=== PATIENT | male | born 1965 | race Hispanic/Latino ===

== ENCOUNTER 2017-09-10 10:45 | Inpatient (IN) | payer BC, SELFPAY ==
[2017-09-10 11:55] LABS: Hemoglobin 13.4 g/dL (14.0-18.0); Mean Corpuscular HGB CONC 33.5 g/dL (32.0-36.0); Mean Corpuscular Hemoglobin 29.8 pg (27.0-31.0); Mean Corpuscular Volume 89.1 fl (80.0-94.0); Platelet Count 287 thou/uL (130-400); White Blood Cell (WBC) Count 16.4 thou/uL (4.8-10.8)
[2017-09-10 12:12] LABS: Band 21 % (5-11); Lymphocytes 3 % (21-51); MDiff Complete? YES; Metamyelocyte 3 % (0-0); Monocytes 8 % (0-10); Neutrophil 65 % (42-75); PLT Morphology Comment Appears Adequate; RBC Morphology Normal
[2017-09-10 12:16] LABS: ALT (SGPT) 20 U/L (8-55); AST (SGOT) 22 U/L (5-34); Albumin 2.8 g/dL (3.5-5.0); Alkaline Phosphatase 155 U/L (40-150); Anion Gap 17 mmol/L (10-20); BUN (Urea Nitrogen) 18 mg/dL (8.4-25.7); Bilirubin, Total 0.6 mg/dL (0.2-1.2); Calc. Creatinine Clearance 0 mL/min (70-130); Calcium 9.4 mg/dL (7.8-10.44); Carbon Dioxide 23 mmol/L (22-29); Chloride 97 mmol/L (98-107); Estimated GFR-MDRD Greater than 90; Globulin 4.2 g/dL (2.4-3.5); Glucose 510 mg/dL (70-105); Potassium 4.3 mmol/L (3.5-5.1); Sodium 133 mmol/L (136-145)
[2017-09-10] MEDS ORDERED: Adacel (T-DAP) 0.5 ML VIAL ONE (12:30)
[2017-09-10] MEDS ORDERED: Clindamycin/D5W 900 mg/50 ml Premix Bag ONE (12:31)
[2017-09-10] MEDS ORDERED: Piperacillin/Tazobactam 4.5 GM in Sodium Chloride 0.9% 100 ML IVPB SCH (12:45)
[2017-09-10] MEDS ORDERED: Insulin Regular 300 UNITS/3 ML VIAL ONE (13:26)
[2017-09-10 13:44] LABS: Bilirubin Negative (Negative); Blood, Urine Negative (Negative); Clarity CLEAR (Clear); Glucose, Urine (Dipstick) >=1000 mg/dL (Negative); Leukocyte Negative (Negative); Nitrite Negative (Negative); Protein, Urine (Dipstick) Negative (Neg-Trace); Specific Gravity, Urine 1.044 (1.002-1.036)
[2017-09-10 13:53] LABS: Amphetamine Not Detected (NotDetected); Barbiturates Screen Not Detected (NotDetected); Benzodiazepine Screen Not Detected (NotDetected); Cocaine Metabolite Screen Not Detected (NotDetected); Medtox Control Line Valid? VALID (VALID); Medtox Reader # READER 4; Methadone Not Detected (NotDetected); Methamphetamine Not Detected (NotDetected); Opiate Screen Detected (NotDetected); Oxycodone Screen Not Detected (NotDetected); Phencyclidine (PCP) Not Detected (NotDetected); THC/Cannabinoid Screen Not Detected (NotDetected); Tricyclic Screen Not Detected (NotDetected)
[2017-09-10] MEDS ORDERED: Ondansetron ODT 4 MG TAB SL PRN (14:39)
[2017-09-10] MEDS ORDERED: Ondansetron HCl/PF 4 MG/2 ML Vial IVP PRN ×2 (14:39→14:48)
[2017-09-10] MEDS ORDERED: Dextrose 50% Abboject 50 ML SYRINGE SLOW IVP PRN (14:48)
[2017-09-10] MEDS ORDERED: HYDROcodone/Acetaminophen 7.5/325 mg Tablet PO PRN (14:48)
[2017-09-10] MEDS ORDERED: Dextrose 5% in Water 1,000 ML IV PRN (14:48)
[2017-09-10] MEDS: Sodium Chloride 0.9% 1,000 ML IV SCH ×2 (15:00→17:32)
[2017-09-10 15:14] VITALS: BMI 31.7
[2017-09-10] MEDS: Piperacillin/Tazobactam 3.375 GM in Sodium Chloride 0.9% 100 ML IVPB SCH ×2 (17:36→23:41)
[2017-09-10] MEDS: HumaLOG 300 UNITS/3 ML VIAL SC PRN (17:38)
[2017-09-10] MEDS: Famotidine/PF 20 mg/2ml Vial SLOW IVP SCH (20:53)
[2017-09-10] MEDS: Insulin Detemir 100 UNITS/ML 10 UNITS in Admixture Fee 1 EACH SC SCH (20:53)
--- NOTE | 2017-09-10 20:54 | HP ---
DATE OF ADMISSION: 09/10/2017 CHIEF COMPLAINT: Back pain. HISTORY OF PRESENT ILLNESS: The patient is a 52-year-old male who is admitted to the [facility] with a 9-day history of back pain. Apparently, approximately 9 days ago, the wind caused that do or was open and hit his back. He had no problems for 3 days approximately and he started having some low grade temperature. No chills. Because he does not have the funds, he was not able to go to the doctor. He was taking his friend's pain medications from [place] and this was gradually getting wors e to the point that he decided to come to the emergency room to look for medical attention. He did n ot have any chest pain. There was no any fever per se. He felt feverish just in the beginning, but nothing today. He had this pain up to approximately 7 or 8 on a scale from 1-10 in the mid center of the back. There was no nausea, vomiting or abdominal pain. At the time of emergency room evaluatio n, he was tachycardic. His white count was elevated and because of above-mentioned problems and his uncontrolled diabetes with sugar more than 500, decision was made to admit him to the hospital for fu rther treatment with IV antibiotics and surgical consultation. PAST MEDICAL HISTORY: Positive for: 1. Diverticulitis. 2. Diabetes mellitus type 2. PAST SURGICAL HISTORY: 1. Surgery for diverticulitis. 2. Appendectomy. 3. Perirenal abscess drainage. ALLERGIES: SULFA. MEDICATIONS: Unknown medications for the pain and metformin 500 mg once a day. FAMILY HISTORY: His father of lung cancer 3 years ago at the age of 73 and his mother has some dementia and she has diabetes mellitus type 2. SOCIAL HISTORY: He never smoked. He never had cigarettes. He does not use any of the other medicat ions than metformin. It is not clear whether he is using any illicit drugs, although he was offered some marijuana today for the pain, but he did not use it according to him, he works with tax returns. REVIEW OF SYSTEMS: Constitutional: Positive for some low grade fever in the beginning, no chills. Eyes: Negative for eye pain or any eye discharge. ENT: Negative for nasal congestion and rhinorrhe a. Respiratory: Negative for cough and shortness of breath. Cardiovascular: Negative for chest pain and palpitations. Gastrointestinal: Negative for nausea, v omiting, abdominal pain. Genitourinary: Negative for dysuria and hematuria. Skin: Negative for jaundice or rash or itching. Musculoskeletal: Negative for arthritis and stiffn ess. Positive for some swelling in the back and pain. Neurologic: Negative for dizziness and heada ches. Psychiatric: Negative for anxiety or depression. PHYSICAL EXAMINATION: VITAL SIGNS: His blood pressure is 132/81, pulse is 110, respiratory rate is 23, pulse oximetry is 9 4% on room air. GENERAL: He is resting in bed quite comfortably. He is not in any distress during my visit. HEENT: His head is atraumatic, normocephalic. Eyes are PERRLA. Sclerae nonicteric. Conjunctivae p inkish. Oral mucosa is somewhat dry. NECK: Supple, no lymphadenopathy. Thyroid is not palpable. LUNGS: Clear. HEART: S1, S2, tachycardic. No S3, no S4, no any murmur. ABDOMEN: Soft, nontender, obese, bowel sounds are present, no organomegaly. EXTREMITIES: No clubbing, cyanosis or edema. SKIN: He has multiple discolorations all over his body from previous rash. He had of unclear etiolo gy. NEUROLOGIC: He is alert and oriented x4. There was not any sensorimotor deficits are present. Cran ial nerves are intact. LABORATORY DATA: Showed white count of 16.4, hematocrit 13.4, hematocrit 40.1, platelet count 287, 2 1% bands, 3 lymphocytes, and 3 metamyelocytes. Chemistry showed sodium of 133, potassium 4.3, chlori de is 97, CO2 is 23, BUN 18, creatinine 0.83, glucose 510. Lactic acid 1.5, alkaline phosphatase 155 , albumin 2.8, globulin 4.2, ssiioch-mm-usftueca ratio 0.7. IMPRESSION: 1. Sepsis secondary to most likely abscess which is located in the mid portion of his back. 2. Abscess of the back. 3. Uncontrolled diabetes mellitus. PLAN: Admission to the medical floor. Condition is fair. Diet: A 2000 calorie ADA diet. Vancomyc in 1 gram q.12 hours IV piggyback, Zosyn 3.375 grams q.6 hours IV piggyback, one dose of each patient received in the emergency room IV fluids at 100 mL per hour of normal saline. General Surgery consu ltation with Dr. Danielle for evaluation of an abscess, possible incision and drainage. Insulin will be used in form of long-acting Levemir 10 units at bedtime and sliding scale mild with Humalog a.c. and at bedtime, Cash 7.5 mg tablets will be used every 6-8 hours p.r.n. as needed for the pain. Blood cultures, urine cultures and drug screen was done, results are pending. Metformin will be put on hol d that is his home medications. He is FULL CODE. His power of correspondence transcriber is his sister, all three agr eed and we will also keep him on DVT prophylaxis with 40 mg of subcutaneous Lovenox and 20 mg of IV p ush, Pepcid for PUD prophylaxis.
[2017-09-10] MEDS ORDERED: Acetaminophen 500 MG TAB PO PRN (23:54)
--- NOTE | 2017-09-11 00:54 | CON ---
DATE OF CONSULTATION: 09/10/2017 GENERAL SURGERY CONSULTATION CHIEF COMPLAINT: Painful mass, left back. HISTORY OF PRESENT ILLNESS: This is a 52-year-old diabetic male, who was hit by a car door about 9 d ays ago. He developed swelling and back pain that has increased over the last few days and he report s draining purulent fluid for the last 2 days as well as elevated glucose. PAST MEDICAL HISTORY: Significant for diabetes mellitus. PAST SURGICAL HISTORY: Had an appendectomy. He has had diverticulitis. He has had a hydrocelectomy . MEDICATIONS: He was no medications. ALLERGIES: He is allergic to SULFA. SOCIAL HISTORY: He is . No tobacco. Rare alcohol. PHYSICAL EXAMINATION: VITAL SIGNS: Temperature 98.5, pulse 109, blood pressure 97/59, well-developed, well-nourished male, awake. HEENT: Unremarkable. LUNGS: Clear. HEART: Regular rate and rhythm. ABDOMEN: Soft, nontender. BACK: There is a 15 cm left upper mid back swollen area with overlying erythema and extreme tenderne ss. LABORATORY AND X-RAY FINDINGS: His white count 16.4, H and H 13 and 40, platelet count 287. Electro lytes show an elevated glucose of 510. ASSESSMENT: Back abscess. PLAN: I and D, but he just ate so will make him n.p.o. and do it tomorrow.
[2017-09-11] MEDS: Vancomycin HCl 1 GM in Premix Bag 1 BAG IVPB SCH ×2 (01:40→14:24)
[2017-09-11] MEDS: Piperacillin/Tazobactam 3.375 GM in Sodium Chloride 0.9% 100 ML IVPB SCH ×4 (05:47→23:37)
[2017-09-11 06:09] LABS: Band 20 % (5-11); Hemoglobin 13.3 g/dL (14.0-18.0); Lymphocytes 13 % (21-51); MDiff Complete? YES; Mean Corpuscular HGB CONC 32.1 g/dL (32.0-36.0); Mean Corpuscular Hemoglobin 28.8 pg (27.0-31.0); Mean Corpuscular Volume 89.8 fl (80.0-94.0); Mean Platelet Volume 7.7 fL (7.4-10.4); Monocytes 5 % (0-10); Neutrophil 62 % (42-75); PLT Morphology Comment Appears Adequate; Platelet Count 310 thou/uL (130-400); RBC Distribution Width 11.9 % (11.5-14.5); Red Blood Cell (RBC) Count 4.63 mill/uL (4.70-6.10); White Blood Cell (WBC) Count 20.7 thou/uL (4.8-10.8)
[2017-09-11] MEDS ORDERED: Fentanyl 100 MCG/2 ML VIAL ONE (08:43)
[2017-09-11] MEDS ORDERED: HYDROmorphone 0.5 MG/0.5 ML SYRINGE ONE (08:43)
[2017-09-11] MEDS ORDERED: Morphine 5 MG/ML SYRINGE SLOW IVP PRN (09:53)
[2017-09-11] MEDS ORDERED: Morphine 2 MG/ML SYRINGE SLOW IVP PRN (09:53)
--- NOTE | 2017-09-11 10:03 | OP ---
PREOPERATIVE DIAGNOSIS: Abscess of back. SURGEON: Yovany Danielle M.D. PROCEDURE: Incision and drainage and debridement. INDICATIONS: This is a 52-year-old male who presented with a several week history of painful mass on his back. FINDINGS: Necrotic fascia containing multiple microabscesses that was probably about 15 x 20 cm in d iameter. The fascia was liquified with non-foul smelling purulent fluid. PROCEDURE IN DETAIL: After informed consent was obtained, the patient was taken to the operating [facility]leen [facility] and given general endotracheal anesthesia. He was placed in the right lateral decubitus position. His back was prepped and draped in the usual fashion. An elliptical incision was performed. Purule nt fluid expressed and sent for culture, turned out was fascia and it was like entire fascia had been liquified with necrosis contained multiple microabscesses of brownish thick purulent fluid. The fas savannah had to be opened up sharply with curved Rosas scissors circumferentially for a distance of approxi mately 15 x 20 cm. Necrotic fascia was excised sharply. Hemostasis achieved with electrocautery. T he wound was thoroughly irrigated with pulse health researcher and 3 liters of saline. Hemostasis assured an d then the wound care team came in to place a wound VAC. The patient tolerated the procedure well.
[2017-09-11] MEDS: Enoxaparin Sodium 40 MG/0.4 ML SYRINGE SC SCH (10:11)
[2017-09-11] MEDS: Famotidine/PF 20 mg/2ml Vial SLOW IVP SCH ×2 (11:38→20:41)
[2017-09-11] MEDS: HumaLOG 300 UNITS/3 ML VIAL SC PRN (11:41)
[2017-09-11] MEDS: Sodium Chloride 0.9% 1,000 ML IV SCH ×2 (11:43→17:26)
[2017-09-11] MEDS ORDERED: Lidocaine 1% PF 5 ML VIAL ONE (12:03)
[2017-09-11] MEDS ORDERED: PROPOFOL 200 MG/20 ML VIAL ONE (12:03)
[2017-09-11] MEDS ORDERED: Glycopyrrolate 0.2 MG/ML 5 ML SYRINGE ONE (12:03)
[2017-09-11] MEDS ORDERED: Ondansetron HCl/PF 4 MG/2 ML Vial ONE (12:03)
[2017-09-11] MEDS ORDERED: Succinylcholine Chloride 20 MG/ML 10 ml SYRINGE FS ONE (12:03)
[2017-09-11 12:23] LABS: HIV (1/2) Antibody/Antigen Non-Reactive (NonReactive); HIV 1/2 INDEX 0.27 S/CO (<1.00)
--- NOTE | 2017-09-11 13:14 | CON ---
DATE OF CONSULTATION: 09/11/2017 REASON FOR CONSULTATION: Abscess carbuncle and necrotizing infection, back area. HISTORY OF PRESENT ILLNESS: A 52-year-old who has a history of type 2 diabetes mellitus and prior episode of diverticulitis who sustained an injury to his back accidentally hit by a car door with development of inflammatory process. He decided to take some pain medications that he had at home and the process became worse to the point that he had to be admitted to the emergency room. Dr. Danielle did I and D with extensive area of fasciitis and abscess formation in the back. Patient has a negative pressure dressing at this site. Other than that, he has a history of some skin disorder a few years ago and he has some scars from that. It does not appear to be active anymore. No headaches, visual symptoms, sore throat, odynophagia, dysphagia, no cough or sputum production or chest pain, no abdominal pain, no genitourinary symptoms, no joint symptoms. PAST MEDICAL HISTORY: Diverticulitis, type 2 diabetes and some skin disorder a few years ago which was not diagnosed. PAST SURGICAL HISTORY: Diverticulitis operation, appendectomy, perianal abscess drainage and drainage of an abscess in the neck area in the recent past. ALLERGIES: SULFA DRUGS WITH RASH. CURRENT MEDICATIONS: Include Tylenol, [place], dextrose, Lovenox, Pepcid, glucagon, morphine, Zosyn, and vancomycin. 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 PHYSICAL EXAMINATION: VITAL SIGNS: T-max 102.4, currently 98.3, blood pressure 119/65, pulse 100-109 , respirations 16, O2 sat 94% on room air and appears in no distress. SKIN: Shows the negative pressure dressing in the back area and mid back region. He has healed scars hyperpigmentation from skin and eruption a few years ago. No lymphadenopathy. HEENT: Ocular movements are conjugate. Oral cavity moist, with no lesions. NECK: Supple, no jugular venous distention. LUNGS: With symmetric clear breath sounds. HEART: S1, S2, regular rate. No S3 or S4. ABDOMEN: Soft, not distended or tender. No ascites. No bladder distention. EXTREMITIES: No joint inflammatory activity. NEUROLOGIC: Nonfocal. LABORATORY DATA: White cell count 16.4 and 20.7, hemoglobin 13 and 13, platelets 310 with 20% bands. Chemistry: Sodium 138, carbon dioxide 23, glucose 388, alkaline phosphatase 155 with normal transaminases and albumin 2.8. Urinalysis greater than 1000 glucose, protein negative. HIV serology nonreactive, opiates detected, but no other drugs. Microbiology with gram positive cocci in clusters identified from the drainage site. Two sets of blood cultures pending thus far. IMAGING STUDIES: None. ASSESSMENT: Type 2 diabetes carbuncle with fasciitis in the back area, status post surgical debridement. DISCUSSION: We will monitor blood cultures. If negative, then we will continue IV antimicrobial therapy, eventually transition to either vancomycin or cefazolin or Rocephin alone. I plan hopefully to transition him to oral antimicrobial therapy once adequate improvement in the inflammatory control is achieved, in preparation for discharge planning as long as blood cultures remain negative. ROYA
[2017-09-11] MEDS: HYDROcodone/Acetaminophen 10/325 mg Tablet PO PRN ×2 (14:26→23:36)
--- NOTE | 2017-09-11 16:18 | PDOC.PN ---
- Subjective Encounter Start Date: 09/11/17 Encounter Start Time: 16:16 Subjective: feels OK.s/p back I&D - Objective Resuscitation Status: Resuscitation Status FULL:Full Resuscitation MAR Reviewed: Yes Vital Signs & Weight: Vital Signs (12 hours) Temp Pulse Resp BP Pulse Ox 09/11/17 11:25 98.3 F 109 H 16 119/65 94 L 09/11/17 08:00 98.7 F 100 18 94 L Weight Admit Weight 227 lb 6.4 oz Weight 227 lb 6.4 oz I&O: 09/10/17 09/11/17 09/12/17 06:59 06:59 06:59 Intake Total 5220 Output Total 900 Balance 4320 Result Diagrams: 09/11/17 05:29 09/10/17 11:39 Additional Labs: Accuchecks 09/11/17 09/11/17 09/11/17 11:33 10:20 08:29 POC Glucose 280 H 274 H 307 H 09/11/17 09/10/17 09/10/17 05:41 21:00 17:02 POC Glucose 353 H 333 H 295 H Microbiology 09/10/17 13:12 Urine voided Urine Culture - Preliminary NO GROWTH AT 24 HOURS 09/10/17 11:39 Venous blood - Right Hand Blood Culture - Preliminary Specimen has been received and culture in progress. No Growth to date. 09/10/17 11:39 Venous blood - Left Hand Blood Culture - Preliminary Specimen has been received and culture in progress. No Growth to date. Laboratory Tests 09/11/17 11:38 HIV 1&2 Antigen & Ab Non-Reactive Phys Exam - Physical Examination Constitutional: NAD HEENT: PERRLA, moist MMs, sclera anicteric, oral pharynx no lesions Neck: no nodes, no JVD, supple, full ROM Respiratory: no wheezing, no rales, no rhonchi, clear to auscultation bilateral Cardiovascular: RRR, no significant murmur, no rub, gallop, irregular Gastrointestinal: soft, non-tender, no distention, positive bowel sounds Musculoskeletal: no edema, pulses present Neurological: non-focal, normal sensation, moves all 4 limbs Psychiatric: normal affect, A&O x 3 Skin: no rash Dx/Plan (1) Abscess of back Code(s): L02.212 - CUTANEOUS ABSCESS OF BACK [ANY PART, EXCEPT BUTTOCK] Status : Acute (2) Uncontrolled diabetes mellitus Code(s): E11.65 - TYPE 2 DIABETES MELLITUS WITH HYPERGLYCEMIA Status: Chronic Qualifiers: Diabetes mellitus type: type 2 Diabetes mellitus complication status: with hyperglycemia - Plan continue antibiotics, DVT proph w/SCDs cont Antibiotics per ID.s/p I&D. -: increase ISS.cont levemir * . Review of Systems - Review of Systems Constitutional: negative: fever, chills, sweats, weakness, malaise, other Respiratory: negative: Cough, Dry, Shortness of Breath, Hemoptysis, SOB with Excertion, Pleuritic Pain, Sputum, Wheezing Cardiovascular: negative: chest pain, palpitations, orthopnea, paroxysmal nocturnal dyspnea, edema, light headedness, other Gastrointestinal: negative: Nausea, Vomiting, Abdominal Pain, Diarrhea, Constipation, Melena, Hematochezia, Other Genitourinary: negative: Dysuria, Frequency, Incontinence, Hematuria, Retention , Other Musculoskeletal: negative: Neck Pain, Shoulder Pain, Arm Pain, Back Pain, Hand Pain, Leg Pain, Foot Pain, Other Skin: negative: Rash, Lesions, Mariusz, Bruising, Other Neurological: negative: Weakness, Numbness, Incoordination, Change in Speech, Confusion, Seizures, Other - Medications/Allergies Allergies/Adverse Reactions: Allergies Allergy/AdvReac Type Severity Reaction Status Date / Time Sulfa (Sulfonamide Allergy Severe Short of Verified 07/09/15 20:09 Antibiotics) Breath Medications: Current Medications Acetaminophen (Tylenol) 1,000 mg PO Q4H PRN PRN Reason: Headache/Fever or Pain Last Admin: 09/11/17 00:09 Dose: 1,000 mg Hydrocodone Bitart/Acetaminophen ([place] 10/325) 1 tab PO Q4H PRN PRN Reason: Mild-Moderate Pain (1-5) Hydrocodone Bitart/Acetaminophen ([place] 10/325) 2 tab PO Q4H PRN PRN Reason: Moderate to Severe Pain (6-10) Last Admin: 09/11/17 14:26 Dose: 2 tab Dextrose/Water (Dextrose 50%) 25 gm SLOW IVP PRN PRN PRN Reason: Hypoglycemia Enoxaparin Sodium (Lovenox) 40 mg SC 0900 [place] Last Admin: 09/11/17 10:11 Dose: Not Given Famotidine (Pepcid) 20 mg SLOW IVP Q12HR [facility] Last Admin: 09/11/17 11:38 Dose: 20 mg Glucagon (Glucagon) 1 mg IM PRN PRN PRN Reason: Hypoglycemia Dextrose/Water (D5w) 1,000 mls @ 0 mls/hr IV .Q0M PRN; As Directed PRN Reason: Hypoglycemia Insulin Detemir 10 units/ (Miscellaneous Medication) 0.1 mls @ 0 mls/hr SC HS [facility] Last Admin: 09/10/17 20:53 Dose: 0.1 mls Sodium Chloride (Normal Saline 0.9%) 1,000 mls @ 100 mls/hr IV .Q10H [facility] Last Admin: 09/11/17 11:43 Dose: 1,000 mls Piperacillin Sod/Tazobactam (Sod 3.375 gm/ Sodium Chloride) 100 mls @ 200 mls/ hr IVPB Q6HR [facility] Last Admin: 09/11/17 11:39 Dose: 100 mls Vancomycin HCl 1 gm/ Device 200 mls @ 200 mls/hr IVPB 0100,1300 [facility] Last Admin: 09/11/17 14:24 Dose: 200 mls Insulin Human Lispro (Humalog) 0 units SC .MILD SLIDING SCALE PRN PRN Reason: Mild Correctional Scale Last Admin: 09/11/17 11:41 Dose: 4 unit Morphine Sulfate (Morphine) 2 mg SLOW IVP Q4H PRN PRN Reason: Mild-Moderate Pain (1-5) Morphine Sulfate (Morphine) 4 mg SLOW IVP Q4H PRN PRN Reason: Moderate to Severe Pain (6-10) Ondansetron HCl (Zofran) 4 mg IVP Q6H PRN PRN Reason: Nausea/Vomiting
[2017-09-11] MEDS ORDERED: Dextrose 5% in Water 1,000 ML IV PRN (16:19)
[2017-09-11] MEDS ORDERED: Insulin Regular 300 UNITS/3 ML VIAL SC PRN (16:19)
[2017-09-11] MEDS ORDERED: Dextrose 50% Abboject 50 ML SYRINGE SLOW IVP PRN (16:19)
[2017-09-11] MEDS: Insulin Detemir 100 UNITS/ML 10 UNITS in Admixture Fee 1 EACH SC SCH (20:40)
[2017-09-12 00:43] LABS: Vancomycin, Trough 5.9 ug/mL
[2017-09-12] MEDS: Vancomycin HCl 1 GM in Premix Bag 1 BAG IVPB SCH ×2 (01:44→13:48)
[2017-09-12] MEDS: Piperacillin/Tazobactam 3.375 GM in Sodium Chloride 0.9% 100 ML IVPB SCH ×2 (05:39→11:03)
[2017-09-12 05:41] LABS: #Eosinphils 0.2 thou/uL (0.0-0.7); #Lymphocytes 1.2 thou/uL (1.20-3.40); #Monocytes 0.9 thou/uL (0.11-0.59); #Neutrophils 10.1 thou/uL (1.40-6.50); %Basophils 0.3 % (0.0-1.0); %Eosinophils 1.3 % (0.0-10.0); %Lymphocytes 9.8 % (21.0-51.0); %Monocytes 7.2 % (0.0-10.0); %Neutrophils 81.4 % (42.0-75.0); Hemoglobin 10.8 g/dL (14.0-18.0); Mean Corpuscular HGB CONC 33.6 g/dL (32.0-36.0); Mean Corpuscular Hemoglobin 30.2 pg (27.0-31.0); Mean Platelet Volume 7.4 fL (7.4-10.4); Platelet Count 271 thou/uL (130-400); RBC Distribution Width 11.8 % (11.5-14.5); Red Blood Cell (RBC) Count 3.57 mill/uL (4.70-6.10); White Blood Cell (WBC) Count 12.5 thou/uL (4.8-10.8)
[2017-09-12] MEDS: Sodium Chloride 0.9% 1,000 ML IV SCH ×3 (05:42→20:12)
[2017-09-12] MEDS: HYDROcodone/Acetaminophen 10/325 mg Tablet PO PRN ×4 (05:46→20:13)
[2017-09-12 05:47] LABS: Anion Gap 8 mmol/L (10-20); BUN (Urea Nitrogen) 11 mg/dL (8.4-25.7); Calc. Creatinine Clearance 185 mL/min (70-130); Carbon Dioxide 27 mmol/L (22-29); Chloride 104 mmol/L (98-107); Estimated GFR-MDRD Greater than 90; Glucose 241 mg/dL (70-105); Potassium 3.2 mmol/L (3.5-5.1); Sodium 136 mmol/L (136-145)
[2017-09-12] MEDS: Enoxaparin Sodium 40 MG/0.4 ML SYRINGE SC SCH (07:39)
[2017-09-12] MEDS: Famotidine/PF 20 mg/2ml Vial SLOW IVP SCH (07:39)
--- NOTE | 2017-09-12 14:27 | PDOC.PN ---
- Subjective Encounter Start Date: 09/12/17 Encounter Start Time: 14:26 Subjective: feels well.has never been on Insulin before - Objective Resuscitation Status: Resuscitation Status FULL:Full Resuscitation MAR Reviewed: Yes Vital Signs & Weight: Vital Signs (12 hours) Temp Pulse Resp BP Pulse Ox 09/12/17 07:46 97.9 F 88 16 09/12/17 03:43 97.9 F 88 16 103/69 94 L Weight Admit Weight 227 lb 6.4 oz Weight 227 lb 6.4 oz I&O: 09/11/17 09/12/17 09/13/17 06:59 06:59 06:59 Intake Total 5220 5360 Output Total 900 Balance 4320 5360 Result Diagrams: 09/12/17 05:14 09/12/17 05:14 Additional Labs: Accuchecks 09/12/17 09/12/17 09/11/17 11:19 05:43 20:31 POC Glucose 231 H 260 H 254 H 09/11/17 16:52 POC Glucose 297 H Microbiology 09/10/17 13:12 Urine voided Urine Culture - Final NO GROWTH AT 48 HOURS 09/11/17 09:48 Back - Abscess Bacterial Culture - Preliminary 09/11/17 09:48 Back - Abscess Staphylococcus aureus 09/11/17 09:48 Back - Abscess Bacterial Culture - Preliminary 09/10/17 13:12 Urine voided Urine Culture - Preliminary NO GROWTH AT 24 HOURS 09/10/17 11:39 Venous blood - Right Hand Blood Culture - Preliminary Specimen has been received and culture in progress. No Growth to date. 09/10/17 11:39 Venous blood - Right Hand Blood Culture - Preliminary NO GROWTH AT 48 HOURS 09/10/17 11:39 Venous blood - Left Hand Blood Culture - Preliminary Specimen has been received and culture in progress. No Growth to date. 09/10/17 11:39 Venous blood - Left Hand Blood Culture - Preliminary NO GROWTH AT 48 HOURS 09/10/17 00:06 Venous blood - Left Hand Blood Culture - Preliminary Specimen has been received and culture in progress. No Growth to date. Laboratory Tests 09/11/17 11:38 HIV 1&2 Antigen & Ab Non-Reactive Phys Exam - Physical Examination Constitutional: NAD HEENT: PERRLA, moist MMs, sclera anicteric, oral pharynx no lesions Neck: no nodes, no JVD, supple, full ROM Respiratory: no wheezing, no rales, no rhonchi, clear to auscultation bilateral Cardiovascular: RRR, no significant murmur Gastrointestinal: soft, non-tender, no distention, positive bowel sounds Musculoskeletal: no edema, pulses present back wound w wound vac & dressing Neurological: non-focal, normal sensation, moves all 4 limbs Psychiatric: normal affect, A&O x 3 Skin: no rash Dx/Plan (1) Abscess of back Code(s): L02.212 - CUTANEOUS ABSCESS OF BACK [ANY PART, EXCEPT BUTTOCK] Status : Acute (2) Uncontrolled diabetes mellitus Code(s): E11.65 - TYPE 2 DIABETES MELLITUS WITH HYPERGLYCEMIA Status: Chronic Qualifiers: Diabetes mellitus type: type 2 Diabetes mellitus complication status: with hyperglycemia - Plan continue antibiotics, out of bed/ambulate, DVT proph w/SCDs cont vancomycin.Final Cx pending.ID following.Appreciate input -: will start on Insulin regimen for home.Pt diabetic for 12 years w/o Rx -: Proteinuria & Glucosuria noted. -: wound vac in place.GS ,wound care following * . Review of Systems - Review of Systems Constitutional: negative: fever, chills, sweats, weakness, malaise, other ENT: negative: Ear Pain, Ear Discharge, Nose Pain, Nose Discharge, Nose Congestion, Mouth Pain, Mouth Swelling, Throat Pain, Throat Swelling, Other Respiratory: negative: Cough, Dry, Shortness of Breath, Hemoptysis, SOB with Excertion, Pleuritic Pain, Sputum, Wheezing Cardiovascular: negative: chest pain, palpitations, orthopnea, paroxysmal nocturnal dyspnea, edema, light headedness, other Gastrointestinal: negative: Nausea, Vomiting, Abdominal Pain, Diarrhea, Constipation, Melena, Hematochezia, Other Genitourinary: negative: Dysuria, Frequency, Incontinence, Hematuria, Retention , Other Musculoskeletal: negative: Neck Pain, Shoulder Pain, Arm Pain, Back Pain, Hand Pain, Leg Pain, Foot Pain, Other Neurological: negative: Weakness, Numbness, Incoordination, Change in Speech, Confusion, Seizures, Other - Medications/Allergies Allergies/Adverse Reactions: Allergies Allergy/AdvReac Type Severity Reaction Status Date / Time Sulfa (Sulfonamide Allergy Severe Short of Verified 07/09/15 20:09 Antibiotics) Breath Medications: Current Medications Acetaminophen (Tylenol) 1,000 mg PO Q4H PRN PRN Reason: Headache/Fever or Pain Last Admin: 09/11/17 00:09 Dose: 1,000 mg Hydrocodone Bitart/Acetaminophen ([place] 10/325) 1 tab PO Q4H PRN PRN Reason: Mild-Moderate Pain (1-5) Last Admin: 09/12/17 11:03 Dose: 1 tab Hydrocodone Bitart/Acetaminophen ([place] 10/325) 2 tab PO Q4H PRN PRN Reason: Moderate to Severe Pain (6-10) Last Admin: 09/11/17 23:36 Dose: 2 tab Dextrose/Water (Dextrose 50%) 25 gm SLOW IVP PRN PRN PRN Reason: Hypoglycemia Enoxaparin Sodium (Lovenox) 40 mg SC 0900 [facility] Last Admin: 09/12/17 07:39 Dose: 40 mg Famotidine (Pepcid) 20 mg PO BID [facility] Glucagon (Glucagon) 1 mg IM PRN PRN PRN Reason: Hypoglycemia Insulin Detemir 10 units/ (Miscellaneous Medication) 0.1 mls @ 0 mls/hr SC HS [facility] Last Admin: 09/11/17 20:40 Dose: 0.1 mls Sodium Chloride (Normal Saline 0.9%) 1,000 mls @ 100 mls/hr IV .Q10H [facility] Last Admin: 09/12/17 05:42 Dose: 1,000 mls Piperacillin Sod/Tazobactam (Sod 3.375 gm/ Sodium Chloride) 100 mls @ 200 mls/ hr IVPB Q6HR [facility] Last Admin: 09/12/17 11:03 Dose: 100 mls Vancomycin HCl 1 gm/ Device 200 mls @ 200 mls/hr IVPB 0100,1300 [facility] Last Admin: 09/12/17 13:48 Dose: 200 mls Dextrose/Water (D5w) 1,000 mls @ 0 mls/hr IV .Q0M PRN; As Directed PRN Reason: Hypoglycemia Insulin Human Regular (Humulin R) 0 units SC .AGGRESSIVE SLIDING PRN PRN Reason: Aggressive Sliding Scale Last Admin: 09/11/17 17:20 Dose: 9 unit Metformin HCl (Glucophage) 500 mg PO BID[facility] Morphine Sulfate (Morphine) 2 mg SLOW IVP Q4H PRN PRN Reason: Mild-Moderate Pain (1-5) Morphine Sulfate (Morphine) 4 mg SLOW IVP Q4H PRN PRN Reason: Moderate to Severe Pain (6-10) Ondansetron HCl (Zofran) 4 mg IVP Q6H PRN PRN Reason: Nausea/Vomiting
[2017-09-12] MEDS: metFORMIN 500 MG TAB PO SCH (16:27)
[2017-09-12] MEDS ORDERED: cefTRIAXone\\ROCEPHIN 1 GM in Sodium Chloride 0.9% 100 ML IVPB SCH (17:30)
--- NOTE | 2017-09-12 17:49 | PRG ---
DATE OF SERVICE: 09/12/2017 SUBJECTIVE: Feeling a little better. Still with moderate pain, no respiratory symptoms or abdominal pain. No diarrhea. OBJECTIVE: VITAL SIGNS: Normal. SKIN: Examination shows the areas with the debridement in the back area of the midline with still so me areas of nonviable yellow tissue. Other areas of necrosis in the more superior segment. LUNGS: Clear. HEART: S1, S2, regular rate. ABDOMEN: Soft. NEUROLOGIC: LABORATORY DATA. WBC count down to 12.5, hemoglobin 10.8, platelets 271. Sodium 136, creatinine 0.6 8. Microbiology with Staphylococcus aureus with pending susceptibility testing. The pathology resul ts from the specimen then demonstrated fibroadipose tissue fragment, granulation tissue, acute and ch ronic inflammation. ASSESSMENT AND DISCUSSION: Type 2 diabetes with carbuncle and fascial involvement secondary to Staph ylococcus aureus either MSSA or MRSA. He is currently receiving Zosyn and vancomycin. We will transition to Rocephin and vancomycin and th en narrow down further according to the susceptibility, results of the organism isolated. Once there is adequate improvement of the wound, then discharge planning on oral antimicrobial therapy accordin g to susceptibility results.
[2017-09-12] MEDS: Insulin Detemir 100 UNITS/ML 10 UNITS in Admixture Fee 1 EACH SC SCH (20:12)
[2017-09-12] MEDS: Famotidine 20 MG TAB PO SCH (20:12)
[2017-09-12] MEDS: cefTRIAXone\\ROCEPHIN 1 GM, Syringe 0.4 ML in Sterile Water 9.6 ML SLOW IVP SCH (20:13)
[2017-09-13] MEDS: HYDROcodone/Acetaminophen 10/325 mg Tablet PO PRN ×4 (00:32→21:11)
[2017-09-13] MEDS: Vancomycin HCl 1.25 GM in Sodium Chloride 0.9% 250 ML 250 ML IVPB SCH ×3 (01:18→16:06)
[2017-09-13] MEDS: Enoxaparin Sodium 40 MG/0.4 ML SYRINGE SC SCH (07:18)
[2017-09-13] MEDS: Famotidine 20 MG TAB PO SCH ×2 (07:18→21:06)
[2017-09-13 09:39] LABS: #Basophils 0.1 thou/uL (0.0-0.2); #Eosinphils 0.3 thou/uL (0.0-0.7); #Lymphocytes 0.8 thou/uL (1.20-3.40); #Monocytes 0.6 thou/uL (0.11-0.59); #Neutrophils 5.5 thou/uL (1.40-6.50); %Basophils 0.7 % (0.0-1.0); %Eosinophils 3.8 % (0.0-10.0); %Lymphocytes 11.5 % (21.0-51.0); %Monocytes 8.2 % (0.0-10.0); %Neutrophils 75.9 % (42.0-75.0); Hemoglobin 11.3 g/dL (14.0-18.0); Mean Corpuscular HGB CONC 32.8 g/dL (32.0-36.0); Mean Corpuscular Hemoglobin 29.7 pg (27.0-31.0); Mean Corpuscular Volume 90.4 fl (80.0-94.0); Mean Platelet Volume 7.2 fL (7.4-10.4); Platelet Count 331 thou/uL (130-400); RBC Distribution Width 11.7 % (11.5-14.5); Red Blood Cell (RBC) Count 3.81 mill/uL (4.70-6.10); White Blood Cell (WBC) Count 7.2 thou/uL (4.8-10.8)
[2017-09-13] MEDS: Sodium Chloride 0.9% 1,000 ML IV SCH (10:03)
[2017-09-13 10:47] LABS: Anion Gap 12 mmol/L (10-20); BUN (Urea Nitrogen) 10 mg/dL (8.4-25.7); Calc. Creatinine Clearance 188 mL/min (70-130); Calcium 8.1 mg/dL (7.8-10.44); Carbon Dioxide 24 mmol/L (22-29); Chloride 106 mmol/L (98-107); Estimated GFR-MDRD Greater than 90; Glucose 281 mg/dL (70-105); Potassium 3.5 mmol/L (3.5-5.1); Sodium 138 mmol/L (136-145)
[2017-09-13] MEDS: metFORMIN 500 MG TAB PO SCH ×2 (11:49→16:37)
--- NOTE | 2017-09-13 14:30 | PDOC.PN ---
- Subjective Encounter Start Date: 09/13/17 Encounter Start Time: 14:28 Subjective: feels well. back pain controlled - Objective Resuscitation Status: Resuscitation Status FULL:Full Resuscitation MAR Reviewed: Yes Vital Signs & Weight: Vital Signs (12 hours) Temp Pulse Resp BP Pulse Ox 09/13/17 14:12 98.0 F 92 18 132/81 92 L 09/13/17 08:00 98.0 F 92 18 127/84 98 09/13/17 07:59 98.7 F 95 18 Weight Admit Weight 227 lb 6.4 oz Weight 227 lb 6.4 oz I&O: 09/12/17 09/13/17 09/14/17 06:59 06:59 06:59 Intake Total 5360 2349 Balance 5360 2349 Result Diagrams: 09/13/17 09:24 09/13/17 09:24 Additional Labs: Accuchecks 09/13/17 09/13/17 09/12/17 11:27 04:28 19:44 POC Glucose 255 H 263 H 327 H 09/12/17 15:57 POC Glucose 320 H Microbiology 09/10/17 13:12 Urine voided Urine Culture - Final NO GROWTH AT 48 HOURS 09/11/17 09:48 Back - Abscess Bacterial Culture - Preliminary 09/11/17 09:48 Back - Abscess Anaerobic Culture - Preliminary Staphylococcus aureus 09/10/17 11:39 Venous blood - Right Hand Blood Culture - Preliminary NO GROWTH AT 48 HOURS 09/10/17 11:39 Venous blood - Left Hand Blood Culture - Preliminary NO GROWTH AT 48 HOURS 09/10/17 00:06 Venous blood - Left Hand Blood Culture - Preliminary Specimen has been received and culture in progress. No Growth to date. Phys Exam - Physical Examination Constitutional: NAD HEENT: PERRLA, moist MMs, sclera anicteric, oral pharynx no lesions Neck: no nodes, no JVD, supple, full ROM Respiratory: no wheezing, no rales, no rhonchi, clear to auscultation bilateral Cardiovascular: RRR, no significant murmur Gastrointestinal: soft, non-tender, no distention, positive bowel sounds Musculoskeletal: no edema, pulses present Neurological: non-focal, normal sensation, moves all 4 limbs Psychiatric: normal affect, A&O x 3 Dx/Plan (1) Abscess of back Code(s): L02.212 - CUTANEOUS ABSCESS OF BACK [ANY PART, EXCEPT BUTTOCK] Status : Acute (2) Uncontrolled diabetes mellitus Code(s): E11.65 - TYPE 2 DIABETES MELLITUS WITH HYPERGLYCEMIA Status: Chronic Qualifiers: Diabetes mellitus type: type 2 Diabetes mellitus complication status: with hyperglycemia - Plan continue antibiotics, incentive spirometry, DVT proph w/lovenox, DVT proph w/ SCDs cont vancomycin.final results pending -: wound vac to be arranged by [facility] -: Care discussed w mother. -: am labs * . Review of Systems - Review of Systems Constitutional: negative: fever, chills, sweats, weakness, malaise, other ENT: negative: Ear Pain, Ear Discharge, Nose Pain, Nose Discharge, Nose Congestion, Mouth Pain, Mouth Swelling, Throat Pain, Throat Swelling, Other Respiratory: negative: Cough, Dry, Shortness of Breath, Hemoptysis, SOB with Excertion, Pleuritic Pain, Sputum, Wheezing Cardiovascular: negative: chest pain, palpitations, orthopnea, paroxysmal nocturnal dyspnea, edema, light headedness, other Gastrointestinal: negative: Nausea, Vomiting, Abdominal Pain, Diarrhea, Constipation, Melena, Hematochezia, Other Genitourinary: negative: Dysuria, Frequency, Incontinence, Hematuria, Retention , Other Musculoskeletal: negative: Neck Pain, Shoulder Pain, Arm Pain, Back Pain, Hand Pain, Leg Pain, Foot Pain, Other Skin: negative: Rash, Lesions, Mariusz, Bruising, Other Neurological: negative: Weakness, Numbness, Incoordination, Change in Speech, Confusion, Seizures, Other - Medications/Allergies Allergies/Adverse Reactions: Allergies Allergy/AdvReac Type Severity Reaction Status Date / Time Sulfa (Sulfonamide Allergy Severe Short of Verified 07/09/15 20:09 Antibiotics) Breath Medications: Current Medications Acetaminophen (Tylenol) 1,000 mg PO Q4H PRN PRN Reason: Headache/Fever or Pain Last Admin: 09/11/17 00:09 Dose: 1,000 mg Hydrocodone Bitart/Acetaminophen ([place] 10/325) 1 tab PO Q4H PRN PRN Reason: Mild-Moderate Pain (1-5) Last Admin: 09/12/17 20:13 Dose: 1 tab Hydrocodone Bitart/Acetaminophen ([place] 10/325) 2 tab PO Q4H PRN PRN Reason: Moderate to Severe Pain (6-10) Last Admin: 09/13/17 11:46 Dose: 2 tab Dextrose/Water (Dextrose 50%) 25 gm SLOW IVP PRN PRN PRN Reason: Hypoglycemia Enoxaparin Sodium (Lovenox) 40 mg SC 0900 [facility] Last Admin: 09/13/17 07:18 Dose: 40 mg Famotidine (Pepcid) 20 mg PO BID [facility] Last Admin: 09/13/17 07:18 Dose: 20 mg Glucagon (Glucagon) 1 mg IM PRN PRN PRN Reason: Hypoglycemia Insulin Detemir 10 units/ (Miscellaneous Medication) 0.1 mls @ 0 mls/hr SC HS [facility] Last Admin: 09/12/17 20:12 Dose: 0.1 mls Sodium Chloride (Normal Saline 0.9%) 1,000 mls @ 100 mls/hr IV .Q10H [facility] Last Admin: 09/13/17 10:03 Dose: 1,000 mls Dextrose/Water (D5w) 1,000 mls @ 0 mls/hr IV .Q0M PRN; As Directed PRN Reason: Hypoglycemia Ceftriaxone Sodium 1 gm/ (Syringe 0.4 ml/ Sterile Water) 10 mls @ 120 mls/hr SLOW IVP 2000 [facility] Last Admin: 09/12/17 20:13 Dose: 10 mls Vancomycin HCl 1.25 gm/ Sodium (Chloride) 250 mls @ 166.667 mls/hr IVPB 0100, 0900,1700 [facility] Last Admin: 09/13/17 10:12 Dose: 250 mls Insulin Human Regular (Humulin R) 0 units SC .AGGRESSIVE SLIDING PRN PRN Reason: Aggressive Sliding Scale Last Admin: 09/11/17 17:20 Dose: 9 unit Metformin HCl (Glucophage) 500 mg PO BID-[facility] Last Admin: 09/13/17 11:49 Dose: Not Given Miscellaneous Medication (Pharmacy To Dose) 0 each IVPB PRN PRN PRN Reason: [facility] Pharmacy to Dose Morphine Sulfate (Morphine) 2 mg SLOW IVP Q4H PRN PRN Reason: Mild-Moderate Pain (1-5) Morphine Sulfate (Morphine) 4 mg SLOW IVP Q4H PRN PRN Reason: Moderate to Severe Pain (6-10) Last Admin: 09/13/17 09:06 Dose: 4 mg Ondansetron HCl (Zofran) 4 mg IVP Q6H PRN PRN Reason: Nausea/Vomiting
[2017-09-13] MEDS: Insulin Detemir 100 UNITS/ML 10 UNITS in Admixture Fee 1 EACH SC SCH (21:05)
[2017-09-13] MEDS: cefTRIAXone\\ROCEPHIN 1 GM, Syringe 0.4 ML in Sterile Water 9.6 ML SLOW IVP SCH (21:05)
[2017-09-14 00:44] LABS: Vancomycin, Trough 12.1 ug/mL
[2017-09-14] MEDS: Sodium Chloride 0.9% 1,000 ML IV SCH ×2 (01:07→08:31)
[2017-09-14] MEDS: Vancomycin HCl 1.25 GM in Sodium Chloride 0.9% 250 ML 250 ML IVPB SCH (01:07)
[2017-09-14] MEDS: HYDROcodone/Acetaminophen 10/325 mg Tablet PO PRN (05:29)
[2017-09-14 06:28] LABS: #Eosinphils 0.2 thou/uL (0.0-0.7); #Lymphocytes 1.1 thou/uL (1.20-3.40); #Monocytes 0.7 thou/uL (0.11-0.59); #Neutrophils 4.4 thou/uL (1.40-6.50); %Basophils 0.3 % (0.0-1.0); %Eosinophils 3.5 % (0.0-10.0); %Monocytes 10.2 % (0.0-10.0); Hemoglobin 11.5 g/dL (14.0-18.0); Mean Corpuscular HGB CONC 32.7 g/dL (32.0-36.0); Mean Corpuscular Hemoglobin 29.8 pg (27.0-31.0); Mean Corpuscular Volume 91.2 fl (80.0-94.0); Mean Platelet Volume 7.5 fL (7.4-10.4); Platelet Count 334 thou/uL (130-400); RBC Distribution Width 11.8 % (11.5-14.5); Red Blood Cell (RBC) Count 3.85 mill/uL (4.70-6.10); White Blood Cell (WBC) Count 6.3 thou/uL (4.8-10.8)
[2017-09-14 06:37] LABS: Anion Gap 9 mmol/L (10-20); BUN (Urea Nitrogen) 9 mg/dL (8.4-25.7); Calc. Creatinine Clearance 178 mL/min (70-130); Calcium 8.1 mg/dL (7.8-10.44); Carbon Dioxide 23 mmol/L (22-29); Chloride 108 mmol/L (98-107); Estimated GFR-MDRD Greater than 90; Glucose 334 mg/dL (70-105); Sodium 136 mmol/L (136-145)
[2017-09-14] MEDS: Famotidine 20 MG TAB PO SCH (08:29)
[2017-09-14] MEDS: metFORMIN 500 MG TAB PO SCH (08:29)
[2017-09-14] MEDS: Enoxaparin Sodium 40 MG/0.4 ML SYRINGE SC SCH (08:30)
[2017-09-14] MEDS ORDERED: Vancomycin HCl 1.5 GM in Sodium Chloride 0.9% 250 ML 300 ML IVPB SCH (09:00)
[2017-09-14] MEDS ORDERED: Insulin NPH/Reg Insulin Hm 300 UNITS/3 ML VIAL SC SCH (11:30)
[2017-09-14 13:13] VITALS: BP 117/74; TEMP 98
--- NOTE | 2017-09-14 14:19 | DIS ---
DATE OF ADMISSION: 09/10/2017 DATE OF DISCHARGE: 09/14/2017 CONDITION AT THE TIME OF DISCHARGE: Stable and improved. DISCHARGE DISPOSITION: Home. PRIMARY CARE PHYSICIAN: The patient follows up with [facility] on and off and some [facility] on . DISCHARGE DIAGNOSES: 1. Abscess of the back, status post incision and drainage. 2. Uncontrolled diabetes mellitus. 3. Medical noncompliance. DISCHARGE MEDICATIONS: Metformin 500 mg p.o. b.i.d., insulin 70/30 10 units 3 times a day and Keflex 500 mg 4 times a day for 3 weeks. DISCHARGE FOLLOWUP: 1. Infectious Disease doctor, Dr. Rincon. 2. [facility]. PROCEDURES DONE: In the hospital, incision and drainage of the back abscess with wound VAC placement . CONSULTATIONS: Inhouse include, 1. Infectious Disease. 2. General Surgery, Dr. Yovany Danielle. HOSPITAL COURSE: Mr. Ruffin is a 52-year-old male with known history of diabetes mellitus who is ve noncompliant and more or less was not taking any medications, who presented to the emergency room with complaints of back pain. He reported that he has hit his back with an open door and started to have low-grade temperatures, but then the pain did not go away with some [id number] pain medica tion. He presented to the emergency room. In the emergency room, he was found to have leukocytosis and hyperglycemia with blood sugar of more than 500 without evidence of diabetic ketoacidosis. He wa s found to have an abscess on his back. He has hit his back with the door. Otherwise, he was hemody namically stable. He was admitted to medical floor on IV antibiotics and IV fluids and General Surge ry was consulted for possible I and D of the abscess on the back. Please see admission history and p hysical for further details. HOSPITAL COURSE: The patient was continued on IV antibiotic and was evaluated by Dr. Danielle from the General Surgery unit. He took him to the OR for I and D, which was successfully done on 07/11/2018. Samples were sent for microbiology and it came back as methicillin-sensitive Staphylococcus aureus. His urine culture and blood cultures remained negative x2. Infectious Disease, Dr. Rincon was consul danita with regards to the antibiotics and once the final culture results were obtained, he was discharg ed on Keflex for 2-3 weeks. The patient is on Ensure and was found to have uncontrolled diabetes. He was started on insulin and continued on his metformin, which he is taking whenever he wants to. Prescriptions were provided to him and financial assistance department helped arrange antibiotic, insulin and metformin for him. Brett dorantes family was in the room with him all the time and it seems like he is largely dependent on his sebastián childs for his care, though he lives alone. His mother is a retired nurse herself and she verbalized unde rstanding. [facility] was arranged for him as well and he was discharged with portable wound VAC. He was given an appointment at the Wound Care Clinic. I discussed his diagnosis in detail with the patient himself. He gave different stories to different people, sometimes he would say that he goes to a primary care physician and then the next moment he would say he has never seen a physician in 12 years. I am not sure what is true or not. Nevertheles s, he is instructed to follow up with a primary care physician and he was also instructed to follow u p with Infectious Disease doctor in 2-3 weeks and take his medications as prescribed. PHYSICAL EXAMINATION: He was seen and examined prior to discharge. VITAL SIGNS: Temperature 98, pulse of 82, respirations 18, saturating 96% on room air, blood pressur e 117/74. GENERAL: No acute distress, awake, alert, and oriented x3. CHEST: Clear to auscultation without any wheezing, rales or rhonchi. HEART: Rate and rhythm is regular without any murmur, rubs, or gallops. MUSCULOSKELETAL: Wound VAC placed on the upper back. LABORATORY DATA: Lab examination includes CBC with WBCs of 6.3, which was 16.4 upon presentation, ot [facility] unremarkable. Serum chemistries within normal limits. Blood sugars ranged anywhere from 250 -350. His HIV screen was negative. His urine drug screen was positive for opiates. His urine had m ore than 10,000 glucosuria and ketones status. Discharge plan was discussed with the patient and his mother and his sister multiple times throughout his hospitalization and all questions were answered. Total time spent at the discharge of this patient 34 minutes.
--- NOTE | 2017-09-19 11:22 | PQF ---
Carroll Ruffin RICHA MD [id number] CLINICAL DOCUMENTATION CLARIFICATION FORM: POST DISCHARGE Addendum to original discharge summary date: 09/14/2017 Carroll Ruffin [id number] CORTES CORREA MD PLEASE DOCUMENT YOUR RESPONSE BELOW YOUR INPUT IS NEEDED TO CORRECTLY CODE A DIAGNOSIS FOR YOUR PATIENT. DATE: 09/19/2017 ATTN: Dr. Correa Please exercise your independent, professional judgment in responding to the clarification form. Clinical indicators are provided on the bottom of this form for your review Please check appropriate box(s) to clarify if the following diagnosis has been ruled in or ruled out: [ ] Sepsis was a Ruled in diagnosis [ ] Continue to treat [ ] Resolved [ ] Sepsis was a Ruled out diagnosis [ ] Cannot rule out diagnosis [ ] Other diagnosis (please specify) [ ] Unable to determine In addition, please specify: Present on Admission (POA): [X ] Yes [ ] No [ ] Unable to determine For continuity of documentation, please document condition throughout progress notes and discharge summary. Thank You. CLINICAL INDICATORS - SIGNS / SYMPTOMS / LABS (per H&P/ED record) Per ED record: Patient is a poorly controlled diabetic that meets sepsis criteria. Per H&P: Sepsis secondary to most likely abscess which is located in the mid portion of his back (no mention of sepsis after this). White count 16.4. Tachycardic. Uncontrolled diabetes. RISK FACTORS (per H&P) Abscess of back (growing MSSA). TREATMENTS (per medications) IV Vancomycin. IV Fluids. (This form is maintained as a part of the permanent medical record) 2014 [employer], [employer]. All Rights Reserved Lucy [email or web address] [phone] MTDD
== END 2017-09-14 16:51 | disposition home or self-care (01) | DRG 572 ==
LOC: ERS 10:45 → T4-B 14:29
PROVIDERS: ADMIT Internal Medicine; ATTEND Internal Medicine
PROC: 0JB70ZZ Excision of Back Subcutaneous Tissue and Fascia, Open Approach (ICD-10-PCS; principal; 2017-09-11)
DX: L02.212 Cutaneous abscess of back [any part, except buttock and flank] (principal); E11.65 Type 2 diabetes mellitus with hyperglycemia; B95.61 Methicillin susceptible Staphylococcus aureus infection as the cause of diseases classified elsewhere; Z91.14 Patient's other noncompliance with medication regimen; Z88.2 Allergy status to sulfonamides; Z79.84 Long term (current) use of oral hypoglycemic drugs
CPT/HCPCS: 36415; 36416; 80048; 80053; 80202; 80306; 81003; 83605; 85025; 87040; 87070; 87077; 87086; 87186; 87205; 87389; 88305; 88312; 90471; 90715; 96365; 96367; 96368; 96375; J2270; A4216; J0696; J1170; J1650; J1815; J2001; J2405; J2543; J2704; J3010; J3370; J3490; J7050; S0028

== ENCOUNTER 2017-09-15 14:48 | Outpatient (CLI) | payer SELFPAY | END 2017-09-15 14:49 | disposition home or self-care (01) | LOC: WCC 14:48 | PROVIDERS: ATTEND Family Medicine | DX: T81.89XD Other complications of procedures, not elsewhere classified, subsequent encounter (principal) | CPT/HCPCS: 97605 ==

== ENCOUNTER 2017-09-18 10:51 | Outpatient (CLI) | payer SELFPAY | END 2017-09-18 10:52 | disposition home or self-care (01) | LOC: WCC 10:51 | PROVIDERS: ATTEND Family Medicine | DX: T81.89XD Other complications of procedures, not elsewhere classified, subsequent encounter (principal) | CPT/HCPCS: 97605 ==

== ENCOUNTER 2017-09-21 09:02 | Outpatient (CLI) | payer SELFPAY ==
--- NOTE | 2017-09-21 19:19 | HP ---
DATE OF SERVICE: 09/21/2017 HISTORY OF PRESENT ILLNESS: Mr. Carroll Ruffin is a very pleasant 52-year-old gentleman who present s to the Wound Center for evaluation of a wound of the left back subsequent to surgery for an abscess of the left back. Specifically, the patient underwent incision, drainage, and debridement by Dr. Stacie Danielle on 09/11/2017. Negative pressure therapy was initiated intraoperatively and upon discharge from [facility], the patient was referred to the Wound Center for assistance w ith dressing changes of the wound VAC. The patient was discharged to home on Keflex. PAST MEDICAL HISTORY: 1. Diabetes mellitus. 2. Diverticular disease. PAST SURGICAL HISTORY: 1. Partial colectomy for complications secondary to diverticular disease. 2. Appendectomy. 3. Hydrocelectomy. 4. Incision and drainage of gluteal abscess in 06/2014. 5. Incision, drainage and debridement of left back abscess on 09/11/2017. MEDICATIONS: 1. Metformin. 2. Keflex. 3. Hydrocodone. ALLERGIES: SULFA. SOCIAL HISTORY: Social history is negative for tobacco or ETOH use. FAMILY HISTORY: Family history is significant for diabetes mellitus. The patient's mother and siste r were both diagnosed with diabetes mellitus. PHYSICAL EXAMINATION: VITAL SIGNS: Temperature 97.9, pulse 104, respirations 18, blood pressure 142/94. Accu-Chek 182. GENERAL: A 52-year-old gentleman, sitting on table in examination room, in no acute distress. HEENT: Normocephalic, atraumatic. NECK: No nuchal rigidity. CHEST: Clear to auscultation. CARDIOVASCULAR: Regular rate and rhythm. ABDOMEN: Soft. EXTREMITIES: No clubbing, cyanosis or edema. NEUROLOGIC: Grossly nonfocal. BACK: A wound of the left back is present, which measures approximately 4.2 x 8.1 cm. Granulation t issue is visible within the wound margins. Necrotic and nonviable tissue present within the wound ma rgins was debrided with an excisional full-thickness debridement with the use of scissors. No purule nt drainage is associated with the wound. No erythema of the skin surrounding the wound is present. No maceration of the skin of the periwound is noted. ASSESSMENT AND PLAN: 1. Left back wound as described above. Negative pressure therapy will be continued with dressing ch anges of the wound VAC 2 times per week here in the Wound Center. The wound VAC will be placed to se ttings of 125 mmHg, continuous. The patient has been reminded to continue Keflex as prescribed at th e time of discharge. The patient will be seen by Dr. Danielle in 1 week. I will see Mr. Ruffin again in two weeks. 2. Diabetes mellitus. The patient's Accu-Chek in clinic today is 182. The patient has been reminde d that for optimal wound healing. His blood glucoses should remain below 150. 3. Diverticular disease.
== END 2017-09-21 09:03 | disposition home or self-care (01) ==
LOC: WCC 09:02
PROVIDERS: ATTEND Family Medicine
DX: T81.89XD Other complications of procedures, not elsewhere classified, subsequent encounter (principal); E11.9 Type 2 diabetes mellitus without complications; K57.90 Diverticulosis of intestine, part unspecified, without perforation or abscess without bleeding

== ENCOUNTER 2017-09-25 15:31 | Outpatient (CLI) | payer SELFPAY ==
[~2017-09-25 15:31] MED LIST: Sodium Chloride 0.9% 15 ML NEB ONE
== END 2017-09-25 15:32 | disposition home or self-care (01) ==
LOC: WCC 15:31
PROVIDERS: ATTEND Family Medicine
DX: T81.89XD Other complications of procedures, not elsewhere classified, subsequent encounter (principal)
CPT/HCPCS: 97605; A4218

== ENCOUNTER 2017-09-28 15:34 | Outpatient (CLI) | payer SELFPAY | END 2017-09-28 15:35 | disposition home or self-care (01) | LOC: WCC 15:34 | PROVIDERS: ATTEND Family Medicine | DX: T81.89XD Other complications of procedures, not elsewhere classified, subsequent encounter (principal) | CPT/HCPCS: 97605 ==

== ENCOUNTER 2017-10-02 15:09 | Outpatient (CLI) | payer SELFPAY | END 2017-10-02 15:10 | disposition home or self-care (01) | LOC: WCC 15:09 | PROVIDERS: ATTEND Family Medicine | DX: T81.89XD Other complications of procedures, not elsewhere classified, subsequent encounter (principal); Z88.2 Allergy status to sulfonamides | CPT/HCPCS: 97606; A4218 ==

== ENCOUNTER 2017-10-05 11:04 | Outpatient (CLI) | payer SELFPAY ==
--- NOTE | 2017-10-05 13:03 | PRG ---
DATE OF SERVICE: 10/05/2017 HISTORY: Mr. Carroll Ruffin is a very pleasant 52-year-old gentleman, who presents to the Wound Ce nter for evaluation of a wound of the left back subsequent to surgery for an abscess of the left back . Specifically, the patient underwent incision, drainage, and debridement by Dr. Yovany Danielle on 09/11. Negative pressure therapy was initiated intraoperatively and upon discharge from [facility], the patient was referred to the Wound Center for assistance with dressing bucio ges of the wound VAC. The patient was discharged to home on Keflex. PHYSICAL EXAMINATION: VITAL SIGNS: Temperature 97.7, pulse 112, respirations 18, and blood pressure 125/88. BACK: A wound of the left back is present, which measures approximately 7.5 x 4.5 cm. The dimension s of the wound at the time of the patient's visit on 09/21/2017 were approximately 4.2 x 8.1 cm. Gra nulation tissue is visible within the wound margins. Necrotic and nonviable tissue present within th e wound margins was debrided with an excisional full-thickness debridement with the use of scissors. No purulent drainage is associated with the wound. No erythema of the skin surrounding the wound is present. No maceration of the skin of the periwound is noted. Undermining at the inferior aspect o f the wound is present and is approximately 4 cm in length. ASSESSMENT AND PLAN: 1. Left back wound as described above. Negative pressure therapy will be continued with dressing ch anges of the wound VAC 2 times per week here in the Wound Center. The wound VAC will be continued at the settings of 125 mmHg continuous. The patient states he is still taking Keflex as prescribed at the time of discharge. I will see Mr. Ruffin again in two weeks. 2. Diabetes mellitus. The patient's Accu-Chek in clinic today is 165. The patient has been reminde d that for optimal wound healing, his blood glucoses should remain below 150. 3. Diverticular disease.
== END 2017-10-05 11:05 | disposition home or self-care (01) ==
LOC: WCC 11:04
PROVIDERS: ATTEND Family Medicine
DX: T81.89XD Other complications of procedures, not elsewhere classified, subsequent encounter (principal); E11.9 Type 2 diabetes mellitus without complications; K57.90 Diverticulosis of intestine, part unspecified, without perforation or abscess without bleeding
CPT/HCPCS: 11042; 11045

== ENCOUNTER 2017-10-09 11:03 | Outpatient (CLI) | payer SELFPAY | END 2017-10-09 11:04 | disposition home or self-care (01) | LOC: WCC 11:03 | PROVIDERS: ATTEND Family Medicine | DX: T81.89XD Other complications of procedures, not elsewhere classified, subsequent encounter (principal) | CPT/HCPCS: 97606; A4218 ==

== ENCOUNTER 2017-10-12 11:08 | Outpatient (CLI) | payer SELFPAY ==
[2017-10-12] MEDS ORDERED: Sodium Chloride 0.9% 15 ML NEB ONE (16:20)
== END 2017-10-12 11:09 | disposition home or self-care (01) ==
LOC: WCC 11:08
PROVIDERS: ATTEND Family Medicine
DX: T81.89XD Other complications of procedures, not elsewhere classified, subsequent encounter (principal)
CPT/HCPCS: 97606; A4218

== ENCOUNTER 2017-10-16 11:33 | Outpatient (CLI) | payer SELFPAY ==
[2017-10-16] MEDS ORDERED: Sodium Chloride 0.9% 15 ML NEB ONE (19:51)
== END 2017-10-16 11:34 | disposition home or self-care (01) ==
LOC: WCC 11:33
PROVIDERS: ATTEND Family Medicine
DX: T81.89XA Other complications of procedures, not elsewhere classified, initial encounter (principal)
CPT/HCPCS: 97606; A4218

== ENCOUNTER 2017-10-19 10:11 | Outpatient (CLI) | payer SELFPAY ==
--- NOTE | 2017-10-19 11:35 | PRG ---
DATE OF SERVICE: 10/19/2017 SUBJECTIVE: Mr. Carroll Ruffin is a very pleasant 52-year-old gentleman who presents to the Wound [facility] for evaluation of a wound of the left back subsequent to surgery for an abscess of the left back. Specifically, the patient underwent incision, drainage, and debridement by Dr. Yovany Danielle on 2017. Negative pressure therapy was initiated intraoperatively and upon discharge from [facility], the patient was referred to the Wound Center for assistance with dressing jeffrey es of the wound VAC. The patient was discharged to home on Keflex. PHYSICAL EXAMINATION: VITAL SIGNS: Temperature 97.7, pulse 102, respirations 18, blood pressure 113/70. Accu-Chek 150. BACK: A wound of the left back is present which measures approximately 6.5 x 3.8 cm. The dimensions of the wound at the time of the patient's visit on 10/05/2017 were approximately 7.5 x 4.5 cm. Unde rmining at the lateral aspect of the wound is present and is approximately 3.6 cm in length. The wou nd is granulating. Necrotic and nonviable tissue present within the wound margins was debrided with an excisional full-thickness debridement with the use of scissors. No purulent drainage is associate d with the wound. No erythema of the skin surrounding the wound is present. No maceration of the sk in of the periwound is noted. ASSESSMENT AND PLAN: 1. Left back wound as described above. Negative pressure therapy will be continued with dressing ch anges of the wound VAC 2 times per week here in the Wound Center. The wound VAC will be continued at the settings of 125 mmHg continuous. Undermining at the inferior aspect of the wound at the time of the patient's visit on 10/05/2017 was approximately 4 cm in length. I will see Mr. Ruffin again in two weeks. 2. Diabetes mellitus. The patient's Accu-Chek in clinic today is 150. The patient has been reminde d that for optimal wound healing, his blood glucoses should remain below 150. 3. Diverticular disease.
[2017-10-20] MEDS ORDERED: Sodium Chloride 0.9% 15 ML NEB ONE (12:26)
== END 2017-10-19 10:12 | disposition home or self-care (01) ==
LOC: WCC 10:11
PROVIDERS: ATTEND Family Medicine
DX: T81.89XD Other complications of procedures, not elsewhere classified, subsequent encounter (principal); E11.9 Type 2 diabetes mellitus without complications; K57.90 Diverticulosis of intestine, part unspecified, without perforation or abscess without bleeding
CPT/HCPCS: 11042; 11045

== ENCOUNTER 2017-10-22 16:05 | Emergency (ER) | payer SELFPAY | END 2017-10-22 16:45 | disposition home or self-care (01) | LOC: ERS 16:05 | DX: T81.89XA Other complications of procedures, not elsewhere classified, initial encounter (principal); E11.9 Type 2 diabetes mellitus without complications | CPT/HCPCS: 99282 ==

== ENCOUNTER 2017-10-23 11:35 | Outpatient (CLI) | payer SELFPAY | END 2017-10-23 11:36 | disposition home or self-care (01) | LOC: WCC 11:35 | PROVIDERS: ATTEND Family Medicine | DX: T81.89XD Other complications of procedures, not elsewhere classified, subsequent encounter (principal); Z88.2 Allergy status to sulfonamides | CPT/HCPCS: 97605; A4218 ==

== ENCOUNTER 2017-10-26 15:16 | Outpatient (CLI) | payer SELFPAY | END 2017-10-26 15:17 | disposition home or self-care (01) | LOC: WCC 15:16 | PROVIDERS: ATTEND Family Medicine | DX: T81.89XD Other complications of procedures, not elsewhere classified, subsequent encounter (principal) | CPT/HCPCS: 97605; A4218 ==

== ENCOUNTER 2017-10-30 15:35 | Outpatient (CLI) | payer SELFPAY ==
[2017-10-30] MEDS ORDERED: Sodium Chloride 0.9% 15 ML NEB ONE (19:54)
== END 2017-10-30 15:36 | disposition home or self-care (01) ==
LOC: WCC 15:35
PROVIDERS: ATTEND Family Medicine
DX: T81.89XD Other complications of procedures, not elsewhere classified, subsequent encounter (principal)
CPT/HCPCS: 97605; A4218

== ENCOUNTER 2017-11-02 10:13 | Outpatient (CLI) | payer SELFPAY ==
--- NOTE | 2017-11-02 11:11 | PRG ---
DATE OF SERVICE: 11/02/2017 HISTORY: Mr. Carroll Ruffin is a very pleasant 52-year-old gentleman who presents to the Wound Center for evaluation of a wound of the left back subsequent to surgery for an abscess of the left ba ck. Specifically, the patient underwent incision, drainage, and debridement by Dr. Danielle on 09/11/19 18. Negative pressure therapy was initiated intraoperatively and upon discharge from [facility], the patient was referred to the Wound Center for assistance with dressing changes of the wound VAC. The patient was discharged to home on Keflex. PHYSICAL EXAMINATION: VITAL SIGNS: Temperature 97.8, pulse 92, respirations 19, blood pressure 124/78. Accu-Chek 165. BACK: A wound of the left back is present which measures approximately 5.0 x 3.0 cm. The dimensions of the wound at the time of the patient's visit on 10/19/2017 were approximately 6.5 x 3.8 cm. Unde rmining at the lateral aspect of the wound is present and is approximately 2.5 cm in length. The wou nd is granulating. Necrotic and nonviable tissue present within the wound margins was debrided with an excisional full-thickness debridement with the use of a curet. No purulent drainage is associated with the wound. No erythema of the skin surrounding the wound is present. No maceration of the ski n of the periwound is noted. ASSESSMENT AND PLAN: 1. Left back wound as described above. Negative pressure therapy will be discontinued today. Dress ing changes of Multidex powder and saline-moistened gauze will be initiated. These dressing changes are to be performed on a daily basis after cleansing and irrigation. I will see Mr. Ruffin again in 2 weeks. An ABD secured with tape will also be utilized at the time of dressing changes. I have di scussed the treatment plan with Dr. Danielle. 2. Diabetes mellitus. The patient's Accu-Chek in clinic today is 165. The patient has been reminde d that for optimal wound healing, his blood glucoses should remain below 150. 3. Diverticular disease.
== END 2017-11-02 10:14 | disposition home or self-care (01) ==
LOC: WCC 10:13
PROVIDERS: ATTEND Family Medicine
DX: T81.89XD Other complications of procedures, not elsewhere classified, subsequent encounter (principal); E11.9 Type 2 diabetes mellitus without complications; K57.90 Diverticulosis of intestine, part unspecified, without perforation or abscess without bleeding
CPT/HCPCS: 11042

== ENCOUNTER 2018-06-22 02:09 | Inpatient (IN) | payer OTHER, SELFPAY ==
[2018-06-22 03:15] LABS: #Eosinphils 0.2 thou/uL (0.0-0.7); #Lymphocytes 0.9 thou/uL (1.20-3.40); #Neutrophils 9.4 thou/uL (1.40-6.50); %Basophils 0.2 % (0.0-1.0); %Eosinophils 1.4 % (0.0-10.0); %Monocytes 8.5 % (0.0-10.0); Hemoglobin 13.9 g/dL (14.0-18.0); Mean Corpuscular Hemoglobin 29.6 pg (27.0-31.0); Mean Corpuscular Volume 86.8 fL (78.0-98.0); Mean Platelet Volume 8.1 fL (7.4-10.4); Platelet Count 207 thou/uL (130-400); RBC Distribution Width 11.8 % (11.5-14.5); White Blood Cell (WBC) Count 11.5 thou/uL (4.8-10.8)
[2018-06-22 03:37] LABS: ALT (SGPT) 16 U/L (8-55); AST (SGOT) 15 U/L (5-34); Albumin 4.1 g/dL (3.5-5.0); Alkaline Phosphatase 108 U/L (40-150); Anion Gap 17 mmol/L (10-20); BUN (Urea Nitrogen) 13 mg/dL (8.4-25.7); Bilirubin, Total 0.6 mg/dL (0.2-1.2); Calc. Creatinine Clearance 0 mL/min (70-130); Carbon Dioxide 23 mmol/L (22-29); Chloride 98 mmol/L (98-107); Estimated GFR-MDRD 80; Globulin 4.6 g/dL (2.4-3.5); Glucose 386 mg/dL (70-105); Potassium 4.2 mmol/L (3.5-5.1); Protein, Total 8.7 g/dL (6.0-8.3); Sodium 134 mmol/L (136-145)
[2018-06-22] MEDS ORDERED: Cefepime 2 GM VIAL ONE (04:04)
[2018-06-22] MEDS ORDERED: Sodium Chloride 0.9% 100 ML ONE (04:04)
[2018-06-22] MEDS ORDERED: Vancomycin HCl 1.5 GM in Sodium Chloride 0.9% 250 ML 300 ML IVPB SCH (04:15)
[2018-06-22] MEDS ORDERED: Morphine 4 MG/ML VIAL ONE (05:08)
[2018-06-22] MEDS ORDERED: Dextrose 5% in Water 1,000 ML IV PRN (08:21)
[2018-06-22] MEDS ORDERED: Dextrose 50% Abboject 50 ML SYRINGE SLOW IVP PRN (08:21)
[2018-06-22] MEDS: Piperacillin/Tazobactam 4.5 GM in Sodium Chloride 0.9% 100 ML IVPB SCH ×3 (08:56→22:20)
--- NOTE | 2018-06-22 09:21 | CT ---
PRELIMINARY REPORT/[facility]/EMERGENTY AFTER-HOURS PROCEDURE CT Thoracic Spine With Intravenous Contrast EXAM DATE/TIME: 06/22/2018 4:18 AM CLINICAL HISTORY: 53 years old, male; Pain and signs and symptoms; Mass, lump or swelling; Other: PT present s with an abcess on RT shoulder by spine. ; Additional info: PT present s with an abcess on RT shoulder by roe Tello presents to the ed C/O swelling to area on right upper back. PT. 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 PT. Reports having similar symptoms in past about 1 year ago when edge of car door scraped the left side of skin. PT. Reports that during incident "bacteria got in scrape" where he went to ed and found that his "muscle liquefied". PT. Reports subjective fever/chills over last 4 days and has been taking 3 tylenol daily for it. PT. Denies having any abdominal pain, SOB, chest pain. PT. R eports HX of diabetes. TECHNIQUE: Axial computed tomography images of the thoracic spine with intravenous contrast. COMPARISON: No relevant prior studies available. FINDINGS: Vertebrae: No acute fracture. Normal alignment. Discs/Spinal canal/Neural foramina: No spinal stenosis. No neural foraminal narrowing. Soft tissues: There is a 8 x 4 cm area of inflammatory stranding/phlegmonous change within the upper thoracic posterior back soft tissues without drainable fluid collection at this time. IMPRESSION: Marked inflammatory stranding/phlegmonous change within the upper thoracic posterior back soft tissue s without drainable fluid collection at this time. Thank you for allowing us to participate in the care of your patient. Dictated and Authenticated by: Zaki Prince MD 06/22/2018 4:39 AM Central Time ([place] & [place]) FINAL REPORT CT THORACIC SPINE WITH IV CONTRAST: DATE: 06/22/2018. TIME: Performed on an emergency basis at 0422 hours. HISTORY: Back pain. Soft tissue swelling and abscess. FINDINGS: Agree with the preliminary report by Dr. Prince from [facility]. Degenerative changes of the thoracic spine. Inflammatory stranding and phlegmon at the subcutaneous tissues of the right upper b ack, superficial to the paraspinal musculature. No drainable fluid collection is apparent. POS: [facility]
[2018-06-22] MEDS ORDERED: ISOVUE-370 76%-LOCM 1 ML ONE (10:11)
[2018-06-22] MEDS: Sodium Chloride 0.9% 1,000 ML IV SCH ×2 (10:17→17:12)
[2018-06-22] MEDS: HumaLOG 300 UNITS/3 ML VIAL SC PRN ×2 (12:59→16:29)
--- NOTE | 2018-06-22 18:32 | CON ---
DATE OF CONSULTATION: 06/22/2018 REASON FOR CONSULTATION: Pain in the back area with inflammatory process. HISTORY OF PRESENT ILLNESS: A 53-year-old with history of type 2 diabetes with episode of a carbuncl e in the left back area which was treated at [facility] in 08/2017. At that time, patient r equired extensive surgical debridement because of the necrotizing infection. The organism identified was methicillin-sensitive Staphylococcus aureus. The patient at this time developed pain in the rig ht side of the back area and upper thoracic spine level without any obvious injuries to this back reg ion. After that, he developed progressively worsening pain and decided to come to the emergency room and has been admitted. CT scan has been done and the results are discussed below. REVIEW OF SYSTEMS: Denies any headaches, no visual symptoms, sore throat, odynophagia, dysphagia, dy spnea, chest pain outside the involved area and the cough or sputum production. No vomiting, no abdo nancy pain or diarrhea. No genitourinary symptoms. No hematemesis or melena. No joint symptoms. PAST MEDICAL HISTORY: Type 2 diabetes, carbuncle in the left back area a few months ago, treated wit h surgical debridement antimicrobial therapy, scrotal hydroceles, appendectomy diverticulitis. SOCIAL HISTORY: Never a smoker. He works part-time doing tax returns, lives with family members. ALLERGIES: SULFA DRUGS with rash. FAMILY HISTORY: Noncontributory. PHYSICAL EXAMINATION: VITAL SIGNS: T-max 98.7, blood pressure 140/70, pulse 86, respirations 18. SKIN: Exam shows multiple areas of folliculitis in the back area. There is one area of bulging abno rmality in the right upper back region with marked tenderness. No erythema is noted. No drainage is noticed. Patient has no lymphadenopathy. HEENT: Ocular movements conjugate. Pupils are equal and reactive. Conjunctivae normal. Nasal pass ages patent. Ear exam is normal. Oral cavity is normal. NECK: Supple, no jugular distention. LUNGS: Symmetric with air sounds. HEART: S1, S2, regular rate. No S3, S4 or murmurs. ABDOMEN: Soft, nondistended or tender. No ascites. No distention. NEUROLOGIC: Examination is nonfocal. LABORATORY DATA AND IMAGING DATA: White cell count 11.5, hemoglobin 13.9, platelets 207 with 82% alfred trophils. Chemistry is normal except for glucose 386. Lactic acid was 1.4. Liver profile normal. CRP 16.8, albumin 4.1. No culture results are available at this time. CT scan of the chest showed a n area of phlegmon formation on the right upper back region. I would say the level is around anyone from C7 to T4. No obvious abscess formation is noted at this time. ASSESSMENT: Type 2 diabetes with prior abscess in the left side of the back, treated with surgical d ebridement antimicrobial therapy currently with phlegmon on the right side of the upper back more or less at same level. DISCUSSION: The most likely scenario is Staphylococcal abscess. Continue on antimicrobial therapy p robably with vancomycin at this time plus/minus Rocephin and surgical consultation. Eventually we wi ll likely require surgical debridement. Monitor for dissemination to distant sites, which at this ti me is not apparent.
[2018-06-22] MEDS ORDERED: traMADol HCl 50 MG TAB PO PRN (20:15)
[2018-06-22] MEDS: Acetaminophen 325 MG TAB PO PRN (20:39)
[2018-06-22] MEDS ORDERED: Insulin Glargine 20 UNITS in Pre-Filled Syringe 1 EACH SC SCH (21:00)
[2018-06-23] MEDS: HumaLOG 300 UNITS/3 ML VIAL SC PRN ×4 (00:24→21:00)
[2018-06-23] MEDS: Sodium Chloride 0.9% 1,000 ML IV SCH ×2 (03:12→13:52)
[2018-06-23] MEDS: Piperacillin/Tazobactam 4.5 GM in Sodium Chloride 0.9% 100 ML IVPB SCH (03:14)
[2018-06-23] MEDS ORDERED: Vancomycin HCl 1.5 GM in Sodium Chloride 0.9% 250 ML 300 ML IVPB SCH (04:00)
--- NOTE | 2018-06-23 05:47 | PDOC.EVN ---
Event Note - Event Note Event Note: Reviewed and collaborated case with Patsy Donnelly HAND BINDER CUTTER and agree with assessment and plan as documented
[2018-06-23] MEDS: Acetaminophen 325 MG TAB PO PRN ×2 (06:01→12:11)
[2018-06-23] MEDS ORDERED: VANCOMYCIN IVPB PRN (07:47)
[2018-06-23 07:53] LABS: #Eosinphils 0.1 thou/uL (0.0-0.7); #Lymphocytes 1.1 thou/uL (1.20-3.40); #Monocytes 1.1 thou/uL (0.11-0.59); #Neutrophils 11.7 thou/uL (1.40-6.50); %Basophils 0.1 % (0.0-1.0); %Eosinophils 0.7 % (0.0-10.0); %Monocytes 7.7 % (0.0-10.0); %Neutrophils 83.6 % (42.0-75.0); Hemoglobin 12.7 g/dL (14.0-18.0); Mean Corpuscular HGB CONC 34.2 g/dL (32.0-36.0); Mean Corpuscular Hemoglobin 29.4 pg (27.0-31.0); Mean Corpuscular Volume 86.1 fL (78.0-98.0); Mean Platelet Volume 7.9 fL (7.4-10.4); Platelet Count 199 thou/uL (130-400); RBC Distribution Width 11.5 % (11.5-14.5); Red Blood Cell (RBC) Count 4.32 mill/uL (4.70-6.10); White Blood Cell (WBC) Count 13.9 thou/uL (4.8-10.8)
[2018-06-23 08:18] LABS: ALT (SGPT) 14 U/L (8-55); AST (SGOT) 13 U/L (5-34); Albumin 3.2 g/dL (3.5-5.0); Alkaline Phosphatase 94 U/L (40-150); Anion Gap 13 mmol/L (10-20); BUN (Urea Nitrogen) 10 mg/dL (8.4-25.7); Bilirubin, Total 0.6 mg/dL (0.2-1.2); Calc. Creatinine Clearance 145 mL/min (70-130); Calcium 8.8 mg/dL (7.8-10.44); Carbon Dioxide 23 mmol/L (22-29); Chloride 105 mmol/L (98-107); Estimated GFR-MDRD Greater than 90; Globulin 3.7 g/dL (2.4-3.5); Glucose 308 mg/dL (70-105); Potassium 3.9 mmol/L (3.5-5.1); Protein, Total 6.9 g/dL (6.0-8.3); Sodium 137 mmol/L (136-145)
[2018-06-23] MEDS: cefTRIAXone\\ROCEPHIN 2 GM in Sodium Chloride 0.9% 100 ML IVPB SCH (09:00)
--- NOTE | 2018-06-23 10:18 | CON ---
DATE OF CONSULTATION: 06/22/2018 HISTORY OF PRESENT ILLNESS: Mr. Ruffin presents with a history of pain in his right upper back. He notes after helping someone, moved some garbage. Denies any lacerations or trauma to the area, incr eased swelling, pain associated with fever, admitted to the hospital overnight by the hospitalist. Tari hazel is on IV antibiotics and has a history of insulin-dependent diabetes, has a history of type 2 diabe shraddha. Pain is described as 8/10, sharp in the right posterior upper back and neck. No chills. REVIEW OF SYSTEMS: Ten system review of systems otherwise negative unless described above. PAST MEDICAL HISTORY: Type 2 diabetes, history of left upper back severe infection. PAST SURGICAL HISTORY: Appendectomy and hydrocele debridements. SOCIAL HISTORY: Lives with family. Nonsmoker. No alcohol or other drugs. ALLERGIES: SULFA. FAMILY HISTORY: Noncontributory to anesthetic related complication. PHYSICAL EXAMINATION: VITAL SIGNS: Blood pressure is 91/53, pulse 88, respirations 18. He is afebrile. CHEST: Clear. HEART: Regular rate and rhythm. ABDOMEN: Soft and nontender. EXTREMITIES: No ischemia or edema to extremities. SKIN: There is a large area of induration on the upper back with a small stab wound in the middle. No necrosis, bulla and crepitance. LABORATORY DATA: White cell count is 13, hemoglobin 12, platelet count is 199. Creatinine is 0.83. Sugar was 308. IMAGING DATA: CT scan shows phlegmonous changes in the upper back area. No significant fluid. ASSESSMENT: Phlegmon, cellulitis in right upper back in skin and subcutaneous tissues. Likely we wi ll ultimately need debridement. We will put him on for tomorrow for debridement in the operating [facility] m. Risks, benefits, alternatives discussed. He gives consent. We will do this tomorrow.
[2018-06-23] MEDS: Vancomycin HCl 1.5 GM in Sodium Chloride 0.9% 250 ML 300 ML IVPB SCH (15:46)
--- NOTE | 2018-06-23 15:51 | PDOC.PN ---
- Subjective Encounter Start Date: 06/23/18 Encounter Start Time: 12:00 -: Patient examined this morning, reports some pain around the abscess site -: Denies fever today, no nausea, vomiting - Objective Vital Signs & Weight: Vital Signs (12 hours) Temp Pulse Resp BP BP Pulse Ox 06/23/18 15:38 98.7 F 92 16 114/73 97 06/23/18 11:52 98.9 F 95 18 110/58 L 97 06/23/18 07:55 99.1 F 88 18 91/53 L 97 06/23/18 04:00 99.2 F 95 20 108/68 93 L Weight Weight 99.518 kg I&O: 06/22/18 06/23/18 06/24/18 06:59 06:59 06:59 Intake Total 2428 Output Total 1350 Balance 1078 Result Diagrams: 06/23/18 07:44 06/23/18 07:44 Additional Labs: Accuchecks 06/23/18 06/23/18 06/23/18 10:37 05:26 00:21 POC Glucose 278 H 246 H 248 H 06/22/18 06/22/18 22:56 16:12 POC Glucose 260 H 278 H Phys Exam - Physical Examination Constitutional: NAD HEENT: PERRLA, moist MMs Neck: no nodes, no JVD, full ROM Respiratory: no wheezing, clear to auscultation bilateral Cardiovascular: RRR, no significant murmur Gastrointestinal: soft, non-tender Musculoskeletal: no edema, pulses present Neurological: non-focal, normal sensation Lymphatic: no nodes Psychiatric: normal affect, A&O x 3 Skin: no rash, normal turgor Deviation from normal: Patient with cellulitis, pain to right side of back Dx/Plan (1) Abscess of back Code(s): L02.212 - CUTANEOUS ABSCESS OF BACK [ANY PART, EXCEPT BUTTOCK] Status : Acute (2) Uncontrolled diabetes mellitus Code(s): E11.65 - TYPE 2 DIABETES MELLITUS WITH HYPERGLYCEMIA Status: Chronic Qualifiers: Diabetes mellitus type: type 2 (3) Cellulitis of back Code(s): L03.312 - CELLULITIS OF BACK [ANY PART EXCEPT BUTTOCK] Status: Acute - Plan cont current plan of care, continue antibiotics, DVT proph w/SCDs -: Dr. Pink was consulted and will take pt to the OR for I&D -: Dr. Rincon consulted, zoysn changed to Rocephin -: Will continue to monitor labs, VS * .
--- NOTE | 2018-06-23 16:17 | PDOC.EVN ---
Event Note - Event Note Event Note: Collaborated with Patsy Tarango NP. Agree with assessment and plan as documented.
[2018-06-23] MEDS: HYDROcodone/Acetaminophen 5/325 mg Tablet PO PRN ×2 (17:05→20:58)
[2018-06-24] MEDS: Sodium Chloride 0.9% 1,000 ML IV SCH ×4 (00:24→17:54)
[2018-06-24] MEDS: HYDROcodone/Acetaminophen 5/325 mg Tablet PO PRN ×2 (01:41→17:50)
[2018-06-24] MEDS: Vancomycin HCl 1.5 GM in Sodium Chloride 0.9% 250 ML 300 ML IVPB SCH ×3 (04:48→17:54)
[2018-06-24 06:50] LABS: #Eosinphils 0.2 thou/uL (0.0-0.7); #Lymphocytes 1.1 thou/uL (1.20-3.40); #Neutrophils 9.8 thou/uL (1.40-6.50); %Basophils 0.2 % (0.0-1.0); %Eosinophils 1.5 % (0.0-10.0); %Lymphocytes 9.1 % (21.0-51.0); %Monocytes 8.6 % (0.0-10.0); %Neutrophils 80.6 % (42.0-75.0); Hemoglobin 12.7 g/dL (14.0-18.0); Mean Corpuscular HGB CONC 32.8 g/dL (32.0-36.0); Mean Corpuscular Hemoglobin 29.5 pg (27.0-31.0); Mean Platelet Volume 8.7 fL (7.4-10.4); Platelet Count 190 thou/uL (130-400); RBC Distribution Width 11.7 % (11.5-14.5); Red Blood Cell (RBC) Count 4.31 mill/uL (4.70-6.10); White Blood Cell (WBC) Count 12.1 thou/uL (4.8-10.8)
[2018-06-24 07:07] LABS: ALT (SGPT) 17 U/L (8-55); AST (SGOT) 15 U/L (5-34); Albumin 3.1 g/dL (3.5-5.0); Alkaline Phosphatase 106 U/L (40-150); Anion Gap 11 mmol/L (10-20); BUN (Urea Nitrogen) 10 mg/dL (8.4-25.7); Bilirubin, Total 0.5 mg/dL (0.2-1.2); Calc. Creatinine Clearance 180 mL/min (70-130); Calcium 8.7 mg/dL (7.8-10.44); Carbon Dioxide 22 mmol/L (22-29); Chloride 107 mmol/L (98-107); Estimated GFR-MDRD Greater than 90; Globulin 3.5 g/dL (2.4-3.5); Glucose 207 mg/dL (70-105); Potassium 3.7 mmol/L (3.5-5.1); Protein, Total 6.6 g/dL (6.0-8.3); Sodium 136 mmol/L (136-145)
[2018-06-24] MEDS: cefTRIAXone\\ROCEPHIN 2 GM in Sodium Chloride 0.9% 100 ML IVPB SCH (09:01)
[2018-06-24] MEDS ORDERED: Morphine 4 MG/ML VIAL ONE (10:05)
[2018-06-24] MEDS ORDERED: Lidocaine 1% PF 5 ML VIAL ONE (11:26)
[2018-06-24] MEDS ORDERED: PROPOFOL 200 MG/20 ML VIAL ONE (11:26)
[2018-06-24] MEDS ORDERED: Glycopyrrolate 0.2 MG/ML 5 ML SYRINGE ONE (11:26)
[2018-06-24] MEDS ORDERED: Ondansetron PF 4 MG/2 ML Vial ONE (11:26)
[2018-06-24] MEDS ORDERED: Ondansetron HCl/PF 4 MG/2 ML Vial IVP PRN (14:42)
[2018-06-24] MEDS ORDERED: Promethazine HCl 25 MG/ML VIAL IM PRN (14:42)
[2018-06-24] MEDS ORDERED: HYDROmorphone 2 MG/ML VIAL SLOW IVP PRN (14:42)
[2018-06-24] MEDS ORDERED: PACU-Morphine 4MG/ML VIAL SLOW IVP PRN (14:42)
[2018-06-24] MEDS ORDERED: Promethazine HCl 25 MG/ML VIAL SLOW IVP PRN (14:42)
[2018-06-24] MEDS ORDERED: HYDROmorphone 2 MG/ML VIAL ONE (14:45)
[2018-06-24] MEDS ORDERED: Fentanyl 100 MCG/2 ML VIAL ONE ×2 (14:47→14:53)
[2018-06-24] MEDS ORDERED: traMADol HCl 50 MG TAB PO PRN (15:56)
--- NOTE | 2018-06-24 17:24 | PDOC.PN ---
- Subjective Encounter Start Date: 06/24/18 (f/u DM) Encounter Start Time: 17:20 Subjective: Pt reports feeling off from the anesthesia, pain starting to increase. -: denies any other concerns. States he is living in his car, not taking meds -: and does not eat regular meals - Objective Vital Signs & Weight: Vital Signs (12 hours) Temp Pulse Resp BP Pulse Ox 06/24/18 16:47 98.9 F 102 H 18 135/50 L 94 L 06/24/18 08:00 99.4 F 95 18 113/59 L 95 Weight Weight 230 lb I&O: 06/23/18 06/24/18 06/25/18 06:59 06:59 06:59 Intake Total 2428 3447 Output Total 1350 Balance 1078 3447 Result Diagrams: 06/24/18 05:57 06/24/18 05:57 Additional Labs: Accuchecks 06/24/18 06/24/18 06/24/18 16:28 10:12 06:23 POC Glucose 178 H 185 H 200 H 06/23/18 06/23/18 20:42 17:23 POC Glucose 242 H 256 H EKG Reviewed by me: Yes (tele - sinus 80-100s) Phys Exam - Physical Examination Constitutional: NAD Respiratory: no wheezing, no rales, no rhonchi, clear to auscultation bilateral Cardiovascular: RRR, no significant murmur Gastrointestinal: soft, non-tender, no distention, positive bowel sounds Musculoskeletal: no edema Neurological: non-focal, moves all 4 limbs Psychiatric: normal affect Deviation from normal: multiple annular hyperpigmented macules along arms and legs - -: c/w scarring Dx/Plan (1) Abscess of back Code(s): L02.212 - CUTANEOUS ABSCESS OF BACK [ANY PART, EXCEPT BUTTOCK] Status : Acute (2) Uncontrolled diabetes mellitus Code(s): E11.65 - TYPE 2 DIABETES MELLITUS WITH HYPERGLYCEMIA Status: Chronic Qualifiers: Diabetes mellitus type: type 2 - Plan * s/p I&D today with general surgery and on Vanc and Rocephin - continue this and monitor cultures * DM - continue ISS. Consider initiation of metformin prior to discharge if pt will agree * Case management consult regarding access to health care after discharge and any assistance with living situation * * dvt prophy - scd's * gi prophy - not indicated * code status full * * reviewed plan of care with patient/mother, no questions or further needs at end of eval * anticipate discharge when cleared by Gen Surgery - with plan for antibiotics, wound care if needed and pain meds as an outpatient.
--- NOTE | 2018-06-24 17:35 | PDOC.PN ---
- Subjective Encounter Start Date: 06/23/18 Encounter Start Time: 17:00 (late entry) Pt seen re; back abscess. Pt denies chest pain, reports back pain. - Objective Vital Signs & Weight: Vital Signs (12 hours) Temp Pulse Resp BP Pulse Ox 06/24/18 16:47 98.9 F 102 H 18 135/50 L 94 L 06/24/18 08:00 99.4 F 95 18 113/59 L 95 Weight Weight 230 lb I&O: 06/23/18 06/24/18 06/25/18 06:59 06:59 06:59 Intake Total 2428 3447 Output Total 1350 Balance 1078 3447 Result Diagrams: 06/24/18 05:57 06/24/18 05:57 Additional Labs: Accuchecks 06/24/18 06/24/18 06/24/18 16:28 10:12 06:23 POC Glucose 178 H 185 H 200 H 06/23/18 06/23/18 20:42 17:23 POC Glucose 242 H 256 H Phys Exam - Physical Examination Constitutional: NAD HEENT: moist MMs Neck: supple Respiratory: clear to auscultation bilateral Cardiovascular: RRR Neurological: moves all 4 limbs Psychiatric: normal affect Dx/Plan (1) Abscess of back Code(s): L02.212 - CUTANEOUS ABSCESS OF BACK [ANY PART, EXCEPT BUTTOCK] Status : Acute Comment: continue antibiotics. Gen surgery consulted. - Plan * . Reviewed chart, saw patient. Collaborated with Patsy Tarango ELECTRONIC DATA PROCESSING AUDITOR. Agree with assessment and plan as documented. Review of Systems - Medications/Allergies Allergies/Adverse Reactions: Allergies Allergy/AdvReac Type Severity Reaction Status Date / Time Sulfa (Sulfonamide Allergy Severe Short of Verified 07/09/15 20:09 Antibiotics) Breath Medications: Current Medications Acetaminophen (Tylenol) 650 mg PO Q6H PRN PRN Reason: Headache/Fever or Pain 1-3 Last Admin: 06/23/18 12:11 Dose: 650 mg Hydrocodone Bitart/Acetaminophen ([place] 5/325) 1 tab PO Q4H PRN PRN Reason: Moderate Pain (4-6) Last Admin: 06/24/18 01:41 Dose: 1 tab Hydrocodone Bitart/Acetaminophen ([place] 10/325) 1 tab PO Q4H PRN PRN Reason: Pain 7-10 Dextrose/Water (Dextrose 50%) 25 gm SLOW IVP PRN PRN PRN Reason: Hypoglycemia Fentanyl (Pacu-Sublimaze) 50 mcg SLOW IVP Q10MIN PRN PRN Reason: Moderate to Severe Pain (6-10) Stop: 06/24/18 17:42 Glucagon (Glucagon) 1 mg IM PRN PRN PRN Reason: Hypoglycemia Hydromorphone HCl (Pacu-Dilaudid) 0.5 mg SLOW IVP Q10MIN PRN PRN Reason: Moderate to Severe Pain (6-10) Stop: 06/24/18 17:42 Dextrose/Water (D5w) 1,000 mls @ 0 mls/hr IV .Q0M PRN PRN Reason: Hypoglycemia Ceftriaxone Sodium 2 gm/ (Sodium Chloride) 100 mls @ 200 mls/hr IVPB 0800 [place] Last Admin: 06/24/18 09:01 Dose: 100 mls Vancomycin HCl 1.5 gm/ Sodium (Chloride) 300 mls @ 200 mls/hr IVPB 0100,0900, 1700 [place] Sodium Chloride (Normal Saline 0.9%) 1,000 mls @ 50 mls/hr IV .Q20H COR[place]ON Insulin Human Lispro (Humalog) 0 units SC .MODERATE SLIDING SC PRN PRN Reason: Moderate Correctional Scale Last Admin: 06/23/18 18:13 Dose: 6 unit Insulin Human Lispro (Humalog) 0 units SC .BEDTIME SLIDING SC PRN; Protocol PRN Reason: BEDTIME SLIDING SCALE Last Admin: 06/23/18 21:00 Dose: 2 unit Miscellaneous Medication (Pharmacy To Dose) 0 each IVPB DAILYPRN PRN PRN Reason: LABS Morphine Sulfate (Pacu-Morphine) 4 mg SLOW IVP ONE PRN PRN Reason: Moderate to Severe Pain (6-10) Stop: 06/24/18 17:42 Ondansetron HCl (Pacu-Zofran) 4 mg IVP ONE PRN PRN Reason: Nausea/Vomiting Stop: 06/24/18 17:42 Promethazine HCl (Pacu-Phenergan) 6.25 mg SLOW IVP ONE PRN PRN Reason: Nausea/Vomiting Stop: 06/24/18 17:42 Promethazine HCl (Pacu-Phenergan) 6.25 mg IM ONE PRN PRN Reason: Nausea/Vomiting Stop: 06/24/18 17:42 Sodium Chloride (Flush - Normal Saline) 10 ml IVF PRN PRN PRN Reason: Saline Flush Tramadol HCl (Ultram) 50 mg PO Q4H PRN PRN Reason: Pain 4-6
[2018-06-24] MEDS: HumaLOG 300 UNITS/3 ML VIAL SC PRN (17:51)
--- NOTE | 2018-06-24 20:57 | OP ---
PREOPERATIVE DIAGNOSIS: Back abscess. POSTOPERATIVE DIAGNOSIS: Back abscess. PROCEDURE: Incision and drainage back abscess. SURGEON: Michael Pink MD ANESTHESIA: General. ESTIMATED BLOOD LOSS: Minimal. COMPLICATIONS: None. SPECIMEN: Cultures taken for anaerobes and aerobes. TECHNIQUE: The patient was taken to the operating room and placed supine on the table. After genera l anesthetic was obtained, he was placed in left lateral decubitus position. His back was prepped an d draped in a sterile fashion. Over the fluctuant part of the abscess, an elliptical incision was ma de, full thickness down into an abscess cavity. All loculations were broken up. Cultures were taken . The wound was irrigated and packed using wet-to-dry saline-soaked iodoform. The patient was en ro [place] to recovery in stable condition. All instrument counts, needle counts, and lap counts were correc t.
[2018-06-25] MEDS: Vancomycin HCl 1.5 GM in Sodium Chloride 0.9% 250 ML 300 ML IVPB SCH ×3 (01:13→18:13)
[2018-06-25 05:46] LABS: #Basophils 0.1 thou/uL (0.0-0.2); #Eosinphils 0.3 thou/uL (0.0-0.7); #Lymphocytes 1.5 thou/uL (1.20-3.40); #Monocytes 0.7 thou/uL (0.11-0.59); #Neutrophils 7.3 thou/uL (1.40-6.50); %Basophils 0.5 % (0.0-1.0); %Eosinophils 3.3 % (0.0-10.0); %Lymphocytes 15.1 % (21.0-51.0); %Monocytes 7.1 % (0.0-10.0); Hemoglobin 12.3 g/dL (14.0-18.0); Mean Corpuscular HGB CONC 33.8 g/dL (32.0-36.0); Mean Corpuscular Hemoglobin 29.4 pg (27.0-31.0); Mean Corpuscular Volume 87.1 fL (78.0-98.0); Mean Platelet Volume 8.2 fL (7.4-10.4); Platelet Count 227 thou/uL (130-400); RBC Distribution Width 11.6 % (11.5-14.5); Red Blood Cell (RBC) Count 4.18 mill/uL (4.70-6.10); White Blood Cell (WBC) Count 9.8 thou/uL (4.8-10.8)
[2018-06-25] MEDS: HYDROcodone/Acetaminophen 5/325 mg Tablet PO PRN ×3 (05:51→18:25)
[2018-06-25 05:57] LABS: ALT (SGPT) 14 U/L (8-55); AST (SGOT) 9 U/L (5-34); Albumin 2.9 g/dL (3.5-5.0); Alkaline Phosphatase 95 U/L (40-150); Anion Gap 10 mmol/L (10-20); BUN (Urea Nitrogen) 8 mg/dL (8.4-25.7); Bilirubin, Total 0.4 mg/dL (0.2-1.2); Calc. Creatinine Clearance 183 mL/min (70-130); Calcium 8.7 mg/dL (7.8-10.44); Carbon Dioxide 25 mmol/L (22-29); Chloride 106 mmol/L (98-107); Estimated GFR-MDRD Greater than 90; Globulin 3.6 g/dL (2.4-3.5); Glucose 195 mg/dL (70-105); Potassium 3.5 mmol/L (3.5-5.1); Protein, Total 6.5 g/dL (6.0-8.3); Sodium 137 mmol/L (136-145)
[2018-06-25] MEDS: cefTRIAXone\\ROCEPHIN 2 GM in Sodium Chloride 0.9% 100 ML IVPB SCH (07:55)
[2018-06-25] MEDS: HumaLOG 300 UNITS/3 ML VIAL SC PRN ×4 (08:04→21:04)
--- NOTE | 2018-06-25 08:50 | PRG ---
DATE OF SERVICE: 06/25/2018 Mr. Ruffin feels better today. He states the pain in his back has improved. PHYSICAL EXAMINATION: VITAL SIGNS: He is afebrile. Vital signs are stable. ABDOMEN: His wounds are dressed. ASSESSMENT: Postop day #1 incision and drainage. PLAN: Wound care to start dressing changes. Home in the next few days I suspect. Await cultures.
--- NOTE | 2018-06-25 09:46 | PDOC.PN ---
- Subjective Encounter Start Date: 06/25/18 Encounter Start Time: 09:45 -: old records requested/rev Pt seen and examined,briana ng its entirety, this is my first visit with this patient follow up for back abscess, cx with staph aureus, sensitivities pending No f/C, no N/V/D/C, no CP or SOB All systems reviewed and neg x as above - Objective MAR Reviewed: Yes Vital Signs & Weight: Vital Signs (12 hours) Temp Pulse Resp BP BP Pulse Ox 06/25/18 07:51 98.6 F 88 16 126/78 97 06/25/18 03:47 98.6 F 85 17 106/60 98 Weight Weight 231 lb I&O: 06/24/18 06/25/18 06/26/18 06:59 06:59 06:59 Intake Total 3447 3420 Output Total 1850 Balance 3447 1570 Result Diagrams: 06/25/18 04:55 06/25/18 04:55 Additional Labs: Accuchecks 06/24/18 06/24/18 06/24/18 20:14 16:28 14:41 POC Glucose 184 H 178 H 155 H 06/24/18 10:12 POC Glucose 185 H Radiology Reviewed by me: Yes EKG Reviewed by me: Yes Phys Exam - Physical Examination Constitutional: NAD HEENT: PERRLA, moist MMs, sclera anicteric, oral pharynx no lesions Neck: no JVD, supple, full ROM Respiratory: no wheezing, no rhonchi Cardiovascular: RRR Gastrointestinal: soft, non-tender, no distention, positive bowel sounds Musculoskeletal: no edema, pulses present Neurological: non-focal, normal sensation, moves all 4 limbs Lymphatic: no nodes Psychiatric: normal affect, A&O x 3 Skin: no rash, normal turgor, cap refill <2 seconds Deviation from normal: multiple skin lesions present, old healed scars. Large wound to right back Dx/Plan (1) Cellulitis of back Code(s): L03.312 - CELLULITIS OF BACK [ANY PART EXCEPT BUTTOCK] Status: Acute (2) Abscess of back Code(s): L02.212 - CUTANEOUS ABSCESS OF BACK [ANY PART, EXCEPT BUTTOCK] Status : Acute Comment: continue antibiotics. Gen surgery consulted, S/P I&D 06/24/ Cx s. aureus, sensitivities pending, CCM with Vanc, CTX (3) Uncontrolled diabetes mellitus Code(s): E11.65 - TYPE 2 DIABETES MELLITUS WITH HYPERGLYCEMIA Status: Chronic Qualifiers: Diabetes mellitus type: type 2 - Plan cont current plan of care, continue antibiotics, out of bed/ambulate * .
[2018-06-25] MEDS: Sodium Chloride 0.9% 1,000 ML IV SCH (12:40)
[2018-06-25 12:49] VITALS: BMI 32.3
[2018-06-25 16:39] LABS: Vancomycin, Trough 19.1 ug/mL
[2018-06-26] MEDS: Vancomycin HCl 1.5 GM in Sodium Chloride 0.9% 250 ML 300 ML IVPB SCH ×2 (00:55→09:17)
[2018-06-26] MEDS: HYDROcodone/Acetaminophen 10/325 mg Tablet PO PRN ×2 (01:09→09:17)
[2018-06-26 05:08] LABS: #Eosinphils 0.5 thou/uL (0.0-0.7); #Lymphocytes 1.3 thou/uL (1.20-3.40); #Monocytes 0.5 thou/uL (0.11-0.59); #Neutrophils 3.2 thou/uL (1.40-6.50); %Basophils 0.4 % (0.0-1.0); %Eosinophils 9.3 % (0.0-10.0); %Lymphocytes 23.4 % (21.0-51.0); %Monocytes 9.7 % (0.0-10.0); %Neutrophils 57.2 % (42.0-75.0); Hemoglobin 11.3 g/dL (14.0-18.0); Mean Corpuscular HGB CONC 33.1 g/dL (32.0-36.0); Mean Corpuscular Volume 87.5 fL (78.0-98.0); Mean Platelet Volume 8.4 fL (7.4-10.4); Platelet Count 234 thou/uL (130-400); RBC Distribution Width 11.6 % (11.5-14.5); Red Blood Cell (RBC) Count 3.91 mill/uL (4.70-6.10); White Blood Cell (WBC) Count 5.5 thou/uL (4.8-10.8)
[2018-06-26 05:20] LABS: ALT (SGPT) 15 U/L (8-55); AST (SGOT) 14 U/L (5-34); Albumin 2.9 g/dL (3.5-5.0); Alkaline Phosphatase 89 U/L (40-150); Anion Gap 12 mmol/L (10-20); BUN (Urea Nitrogen) 14 mg/dL (8.4-25.7); Bilirubin, Total 0.3 mg/dL (0.2-1.2); Calc. Creatinine Clearance 173 mL/min (70-130); Calcium 8.8 mg/dL (7.8-10.44); Carbon Dioxide 22 mmol/L (22-29); Chloride 107 mmol/L (98-107); Estimated GFR-MDRD Greater than 90; Globulin 3.4 g/dL (2.4-3.5); Glucose 237 mg/dL (70-105); Potassium 3.6 mmol/L (3.5-5.1); Protein, Total 6.3 g/dL (6.0-8.3); Sodium 137 mmol/L (136-145)
[2018-06-26] MEDS: HumaLOG 300 UNITS/3 ML VIAL SC PRN ×2 (05:32→11:59)
[2018-06-26] MEDS: cefTRIAXone\\ROCEPHIN 2 GM in Sodium Chloride 0.9% 100 ML IVPB SCH (08:30)
[2018-06-26] MEDS: Sodium Chloride 0.9% 1,000 ML IV SCH (08:30)
[2018-06-26 12:20] VITALS: BP 126/78; TEMP 98
--- NOTE | 2018-06-26 12:52 | PDOC.GSPN ---
Surgery Progress Note: Subj - Subjective Patient reports: no new complaints Surgery Progress Note: Obj - Vital signs Vital signs: Vital Signs - Most Recent Temp Pulse Resp BP Pulse Ox 98.0 F 82 18 126/78 97 06/26/18 12:19 06/26/18 12:19 06/26/18 12:19 06/26/18 12:19 06/26/18 12:19 - Physical Exam General: no distress Wound: packing in place Surgery Progress Note: Results - Labs Result Diagrams: 06/26/18 04:20 06/26/18 04:20 Lab results: Laboratory Results - last 24 hr 06/26/18 06/26/18 06/26/18 04:02 04:20 04:20 WBC 5.5 RBC 3.91 L Hgb 11.3 L Hct 34.2 L MCV 87.5 MCH 29.0 MCHC 33.1 RDW 11.6 Plt Count 234 MPV 8.4 Neutrophils % 57.2 Lymphocytes % 23.4 Monocytes % 9.7 Eosinophils % 9.3 Basophils % 0.4 Neutrophils # 3.2 Lymphocytes # 1.3 Monocytes # 0.5 Eosinophils # 0.5 Basophils # 0.0 Sodium 137 Potassium 3.6 Chloride 107 Carbon Dioxide 22 Anion Gap 12 BUN 14 Creatinine 0.73 Estimated GFR (MDRD) Greater than 90 Glucose 237 H POC Glucose 210 H Calcium 8.8 Total Bilirubin 0.3 AST 14 ALT 15 Alkaline Phosphatase 89 Serum Total Protein 6.3 Albumin 2.9 L Globulin 3.4 Albumin/Globulin Ratio 0.9 L 06/26/18 11:02 WBC RBC Hgb Hct MCV MCH MCHC RDW Plt Count MPV Neutrophils % Lymphocytes % Monocytes % Eosinophils % Basophils % Neutrophils # Lymphocytes # Monocytes # Eosinophils # Basophils # Sodium Potassium Chloride Carbon Dioxide Anion Gap BUN Creatinine Estimated GFR (MDRD) Glucose POC Glucose 204 H Calcium Total Bilirubin AST ALT Alkaline Phosphatase Serum Total Protein Albumin Globulin Albumin/Globulin Ratio Surgery Progress Note: A/P - Problem (1) Back abscess Current Visit: Yes Code(s): L02.212 - CUTANEOUS ABSCESS OF BACK [ANY PART, EXCEPT BUTTOCK] Status: Acute - Plan Plan: Home tomorrow. Likely only needs the wound covered, no packing after DC
[2018-06-26] MEDS ORDERED: Cephalexin 250 MG CAP PO SCH (14:00)
--- NOTE | 2018-06-26 17:18 | PRG ---
DATE OF SERVICE: 06/26/2018 SUBJECTIVE: Feeling better. Had I and D over the site by Dr. Pink. No headaches. Mild pain. No dyspnea or chest pain. No abdominal pain or diarrhea. No genitourinary symptoms. Vital signs are normal. The wound is noted in the right side of his back with clean base. Minimal erythema surrounding the wound in the skin. OBJECTIVE: HEART: S1 and S2 regular rate. LUNGS: Clear. ABDOMEN: Soft. Not distended. LABORATORY DATA: Chemistry with hyperglycemia of 237 and albumin 2.9. The white cell count is down to 5.5 and hemoglobin of 11.3. Blood cultures negative. Culture from the abscess with methicillin-sensitive Staphylococcus aureus. ASSESSMENT AND DISCUSSION: Staphylococcal abscess methicillin-sensitive, recommend switching to oral Keflex for discharge planning, duration for 7 to 10 days. Job ID: [id number]
--- NOTE | 2018-06-26 19:05 | PRG ---
DATE OF SERVICE: 06/26/2018 SUBJECTIVE: Feeling better. Less pain. Had a surgical debridement by Dr. Pink. No respiratory symptoms or chest pain. No abdominal pain or diarrhea. No genitourinary symptoms. OBJECTIVE: VITAL SIGNS: Normal. SKIN: The wound is reviewed and it is kind of round-shaped wound, measuring about 3 cm in length x 2.5 in width. Very minimal erythema around this site. LUNGS: Clear. HEART: S1 and S2. Regular rate. ABDOMEN: Soft, nondistended. LABORATORY DATA: White cell count of 5.5, hemoglobin 11, and platelets 234. Staph aureus retrieved from the back abscess, methicillin-sensitive organism. 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 May consider decolonization with doxycycline and rifampin, following acute phase of treatment in the outpatient setting. Job ID: [id number]
--- NOTE | 2018-06-27 06:38 | DIS ---
PRIMARY CARE PHYSICIAN: None. DATE OF ADMISSION: 06/22/2018 DATE OF DISCHARGE: 06/26/2018 DISCHARGE DIAGNOSES: 1. Methicillin-susceptible Staphylococcus aureus abscess and cellulitis of the right shoulder. 2. Diabetes mellitus type 2. 3. Medical nonadherence. 4. Sepsis, present on admission, resolved. CONSULTATIONS: General Surgery, Dr. Pink. PROCEDURES: Incision and drainage 06/24/2018. HISTORY AND PHYSICAL: Mr. Ruffin is a 53-year-old gentleman with known diabetes who presented to [facility] emergency department with back pain and abscess that had been worsening. The patient was initially placed on broad spectrum antibiotics and underwent incision and drainage on 06/24/2018. Cultures gr ew out MSSA, he was streamlined to Keflex today and was stable for discharge with outpatient followup . PHYSICAL EXAMINATION: The patient was seen and examined on the day of discharge. Discharge plan and disposition was discussed face to face with the patient at the bedside. DISCHARGE MEDICATIONS: Keflex 500 mg p.o. q.i.d. for 14 days. FOLLOWUP APPOINTMENTS: [facility]. The patient has refused in the past. Dr. Pink is necessa ry. DISCHARGE CONDITION: Stable. DISPOSITION: Being discharged home via private vehicle for self wound care. DISCHARGE ACTIVITY: As tolerated. DISCHARGE DIET: Diabetic diet recommended.
== END 2018-06-26 17:42 | disposition home or self-care (01) | DRG 872 ==
LOC: ERS 02:09 → 2SW 05:00 → OBSVTOIN 05:00 → 2NO 06-23 00:27 → T4-B 06-25 12:06
PROVIDERS: ADMIT Internal Medicine; ATTEND Internal Medicine
PROC: 0W9K0ZZ Drainage of Upper Back, Open Approach (ICD-10-PCS; principal; 2018-06-24)
DX: A41.01 Sepsis due to Methicillin susceptible Staphylococcus aureus (principal); L02.212 Cutaneous abscess of back [any part, except buttock and flank]; L03.312 Cellulitis of back [any part except buttock and flank]; E11.65 Type 2 diabetes mellitus with hyperglycemia; Z91.14 Patient's other noncompliance with medication regimen; Z88.2 Allergy status to sulfonamides
CPT/HCPCS: 36415; 36416; 72129; 80053; 80202; 81003; 83605; 83930; 85025; 85652; 86140; 87040; 87070; 87077; 87186; 87205; 93005; 96361; 96365; 96367; 96375; J0692; J0696; J1170; J2001; J2270; J2405; J2543; J2704; J3010; J3370; J7050

== ENCOUNTER 2020-04-19 13:03 | Emergency (ER) | payer SELFPAY ==
[2020-04-19 14:28] LABS: #Eosinphils 0.1 thou/uL (0.0-0.7); #Lymphocytes 1.9 thou/uL (1.20-3.40); #Monocytes 0.6 thou/uL (0.11-0.59); #Neutrophils 3.9 thou/uL (1.40-6.50); %Basophils 0.3 % (0.0-1.0); %Lymphocytes 29.1 % (21.0-51.0); %Monocytes 8.8 % (0.0-10.0); %Neutrophils 59.8 % (42.0-75.0); Hemoglobin 14.3 g/dL (14.0-18.0); Mean Corpuscular HGB CONC 33.4 g/dL (32.0-36.0); Mean Corpuscular Hemoglobin 28.8 pg (27.0-31.0); Mean Corpuscular Volume 86.2 fL (78.0-98.0); Mean Platelet Volume 8.6 fL (7.4-10.4); Platelet Count 191 thou/uL (130-400); RBC Distribution Width 12.1 % (11.5-14.5); Red Blood Cell (RBC) Count 4.98 mill/uL (4.70-6.10); White Blood Cell (WBC) Count 6.6 thou/uL (4.8-10.8)
[2020-04-19] MEDS ORDERED: Doxycycline 100 MG CAP PO SCH (14:45)
[2020-04-19] MEDS ORDERED: Acyclovir 800 mg Tablet PO SCH (14:45)
[2020-04-19 14:49] LABS: Anion Gap 16 mmol/L (10-20); BUN (Urea Nitrogen) 16 mg/dL (8.4-25.7); CRP (Inflammatory) 0.52 mg/dL (= or < 0.5); Calc. Creatinine Clearance 0 mL/min (70-130); Calcium 9.5 mg/dL (7.8-10.44); Carbon Dioxide 21 mmol/L (22-29); Chloride 102 mmol/L (98-107); Estimated GFR-MDRD 86; Glucose 334 mg/dL (70-105); Potassium 4.5 mmol/L (3.5-5.1); Sodium 134 mmol/L (136-145)
== END 2020-04-19 16:14 | disposition home or self-care (01) ==
LOC: ERS 13:03
DX: B02.9 Zoster without complications (principal); L03.312 Cellulitis of back [any part except buttock and flank]; L03.313 Cellulitis of chest wall; E11.9 Type 2 diabetes mellitus without complications
CPT/HCPCS: 36415; 80048; 83605; 85025; 85652; 86140; 96360

== ENCOUNTER 2022-03-19 05:12 | Inpatient (IN) | payer SELFPAY ==
[2022-03-19] MEDS ORDERED: Acetaminophen 500 MG TAB ONE (05:49)
[2022-03-19 05:56] LABS: #Eosinphils 0.1 thou/uL (0.0-0.7); #Lymphocytes 1.2 thou/uL (1.20-3.40); #Monocytes 0.6 thou/uL (0.11-0.59); #Neutrophils 5.5 thou/uL (1.40-6.50); %Basophils 0.6 % (0.0-1.0); %Eosinophils 1.3 % (0.0-10.0); %Lymphocytes 16.2 % (21.0-51.0); %Monocytes 7.7 % (0.0-10.0); %Neutrophils 74.2 % (42.0-75.0); Mean Corpuscular HGB CONC 34.8 g/dL (32.0-36.0); Mean Corpuscular Volume 86.2 fL (78.0-98.0); Mean Platelet Volume 8.4 fL (7.4-10.4); Platelet Count 188 thou/uL (130-400); RBC Distribution Width 12.1 % (11.5-14.5); Red Blood Cell (RBC) Count 4.68 mill/uL (4.70-6.10); White Blood Cell (WBC) Count 7.4 thou/uL (4.8-10.8)
[2022-03-19 06:17] LABS: ALT (SGPT) 21 U/L (8-55); AST (SGOT) 16 U/L (5-34); Albumin 4.3 g/dL (3.5-5.0); Alkaline Phosphatase 82 U/L (40-110); Anion Gap 16 mmol/L (10-20); BUN (Urea Nitrogen) 22 mg/dL (8.4-25.7); Bilirubin, Total 0.6 mg/dL (0.2-1.2); CRP (Inflammatory) 3.15 mg/dL (= or < 0.5); Calc. Creatinine Clearance 0 mL/min (70-130); Calcium 9.9 mg/dL (7.8-10.44); Carbon Dioxide 25 mmol/L (22-29); Chloride 99 mmol/L (98-107); Estimated GFR 67; Globulin 3.7 g/dL (2.4-3.5); Glucose 471 mg/dL (70-105); Potassium 4.4 mmol/L (3.5-5.1); Sodium 136 mmol/L (136-145)
[2022-03-19] MEDS ORDERED: Cefepime 2 GM VIAL ONE (06:26)
[2022-03-19] MEDS ORDERED: Vancomycin 1 GM/200 ML BAG ONE (07:16)
[2022-03-19 08:53] LABS: Lactic Acid 1.3 mmol/L (0.5-2.2)
[2022-03-19] MEDS ORDERED: Dextrose 50% Abboject 50 ML SYRINGE SLOW IVP PRN (09:21)
[2022-03-19] MEDS ORDERED: HumaLOG 300 UNITS/3 ML VIAL SC PRN (09:21)
[2022-03-19] MEDS ORDERED: Acetaminophen 325 MG TAB PO PRN (09:21)
[2022-03-19] MEDS ORDERED: Calcium Carbonate 500 MG ChewTAB PO PRN (09:21)
[2022-03-19] MEDS ORDERED: Senokot S 8.6-50 MG TAB PO PRN (09:21)
[2022-03-19] MEDS ORDERED: HYDROcodone/Acetaminophen 5/325 mg Tablet PO PRN (09:21)
[2022-03-19] MEDS ORDERED: Dextrose 5% in Water 1,000 ML IV PRN (09:21)
[2022-03-19] MEDS ORDERED: Morphine 2 MG/ML VIAL SLOW IVP PRN (09:21)
[2022-03-19] MEDS ORDERED: Ondansetron PF 4 MG/2 ML Vial IVP PRN (09:21)
[2022-03-19 09:39] VITALS: BMI 32.8
[2022-03-19] MEDS ORDERED: Insulin Glargine 30 UNITS/0.3 ML VIAL SC SCH (10:45)
[2022-03-19] MEDS ORDERED: Piperacillin/Tazobactam 3.375 GM in Sodium Chloride 0.9% 100 ML IVPB SCH (11:00)
[2022-03-19] MEDS ORDERED: Vancomycin HCl 500 MG in Sodium Chloride 0.9% 100 ML IVPB SCH (11:00)
[2022-03-19] MEDS: Sodium Chloride 0.9% 1,000 ML IV SCH ×2 (11:12→21:10)
[2022-03-19] MEDS: Piperacillin/Tazobactam 3.375 GM in Sodium Chloride 0.9% 100 ML IVPB SCH ×4 (11:13→23:58)
[2022-03-19] MEDS: HumaLOG 300 UNITS/3 ML VIAL SC PRN (16:05)
[2022-03-19 20:21] LABS: SARS-CoV-2 NAA Rapid Test Not Detected (NotDetected)
[2022-03-19] MEDS: Famotidine 20 MG TAB PO SCH (21:11)
[2022-03-19] MEDS: Insulin Glargine 30 UNITS/0.3 ML VIAL SC SCH (21:30)
[2022-03-19] MEDS: Vancomycin 1.5 GRAM/300 ML BAG 1.5 GM in Premix Bag 1 BAG IVPB SCH (21:56)
[2022-03-20 05:53] LABS: #Eosinphils 0.2 thou/uL (0.0-0.7); #Lymphocytes 1.7 thou/uL (1.20-3.40); #Monocytes 0.5 thou/uL (0.11-0.59); #Neutrophils 3.7 thou/uL (1.40-6.50); %Basophils 0.6 % (0.0-1.0); %Eosinophils 2.5 % (0.0-10.0); %Lymphocytes 27.5 % (21.0-51.0); %Monocytes 8.3 % (0.0-10.0); %Neutrophils 61.1 % (42.0-75.0); Hemoglobin 13.5 g/dL (14.0-18.0); Mean Corpuscular HGB CONC 34.5 g/dL (32.0-36.0); Mean Corpuscular Volume 87.1 fL (78.0-98.0); Mean Platelet Volume 8.3 fL (7.4-10.4); Platelet Count 194 thou/uL (130-400); RBC Distribution Width 12.1 % (11.5-14.5); Red Blood Cell (RBC) Count 4.49 mill/uL (4.70-6.10); White Blood Cell (WBC) Count 6.1 thou/uL (4.8-10.8)
[2022-03-20 06:19] LABS: Anion Gap 12 mmol/L (10-20); BUN (Urea Nitrogen) 14 mg/dL (8.4-25.7); Calc. Creatinine Clearance 141 mL/min (70-130); Carbon Dioxide 23 mmol/L (22-29); Chloride 107 mmol/L (98-107); Estimated GFR 101; Glucose 237 mg/dL (70-105); Potassium 4.2 mmol/L (3.5-5.1); Sodium 138 mmol/L (136-145)
[2022-03-20] MEDS: Enoxaparin Sodium 40 MG/0.4 ML SYRINGE SC SCH (08:32)
[2022-03-20] MEDS: Famotidine 20 MG TAB PO SCH ×2 (08:32→20:31)
[2022-03-20] MEDS: Piperacillin/Tazobactam 3.375 GM in Sodium Chloride 0.9% 100 ML IVPB SCH ×3 (08:32→23:09)
[2022-03-20] MEDS: Insulin Glargine 30 UNITS/0.3 ML VIAL SC SCH ×3 (08:52→20:33)
[2022-03-20] MEDS: Vancomycin 1.5 GRAM/300 ML BAG 1.5 GM in Premix Bag 1 BAG IVPB SCH ×2 (13:03→20:31)
[2022-03-20] MEDS: HumaLOG 300 UNITS/3 ML VIAL SC PRN (17:11)
[2022-03-20 20:30] LABS: Vancomycin, Trough 17.5 ug/mL
[2022-03-21] MEDS: HumaLOG 300 UNITS/3 ML VIAL SC PRN ×3 (04:20→16:24)
[2022-03-21 05:29] LABS: Hemoglobin A1c 11.9 % (4.0-6.0)
[2022-03-21 05:41] LABS: #Eosinphils 0.2 thou/uL (0.0-0.7); #Lymphocytes 1.8 thou/uL (1.20-3.40); #Monocytes 0.4 thou/uL (0.11-0.59); #Neutrophils 3.3 thou/uL (1.40-6.50); %Basophils 0.5 % (0.0-1.0); %Monocytes 7.1 % (0.0-10.0); %Neutrophils 58.4 % (42.0-75.0); Hemoglobin 13.6 g/dL (14.0-18.0); Mean Corpuscular HGB CONC 34.1 g/dL (32.0-36.0); Mean Corpuscular Hemoglobin 29.8 pg (27.0-31.0); Mean Corpuscular Volume 87.4 fL (78.0-98.0); Mean Platelet Volume 8.2 fL (7.4-10.4); Platelet Count 204 thou/uL (130-400); RBC Distribution Width 12.1 % (11.5-14.5); Red Blood Cell (RBC) Count 4.55 mill/uL (4.70-6.10); White Blood Cell (WBC) Count 5.6 thou/uL (4.8-10.8)
[2022-03-21 05:43] LABS: Anion Gap 12 mmol/L (10-20); BUN (Urea Nitrogen) 15 mg/dL (8.4-25.7); Calc. Creatinine Clearance 134 mL/min (70-130); Calcium 9.2 mg/dL (7.8-10.44); Carbon Dioxide 25 mmol/L (22-29); Chloride 107 mmol/L (98-107); Estimated GFR 97; Glucose 186 mg/dL (70-105); Potassium 4.1 mmol/L (3.5-5.1); Sodium 140 mmol/L (136-145)
[2022-03-21] MEDS: Piperacillin/Tazobactam 3.375 GM in Sodium Chloride 0.9% 100 ML IVPB SCH ×2 (08:15→16:19)
[2022-03-21] MEDS: Vancomycin 1.5 GRAM/300 ML BAG 1.5 GM in Premix Bag 1 BAG IVPB SCH ×2 (09:40→21:03)
[2022-03-21] MEDS: Enoxaparin Sodium 40 MG/0.4 ML SYRINGE SC SCH (09:41)
[2022-03-21] MEDS: Insulin Glargine 30 UNITS/0.3 ML VIAL SC SCH ×2 (09:41→21:03)
[2022-03-21] MEDS: Famotidine 20 MG TAB PO SCH ×2 (09:42→21:04)
[2022-03-21] MEDS ORDERED: Insulin Glargine 30 UNITS/0.3 ML VIAL SC SCH ×2 (16:25→21:00)
[2022-03-21] MEDS: Amoxicillin/Potassium Clav 875 MG TAB PO SCH (21:04)
[2022-03-22] MEDS: HumaLOG 300 UNITS/3 ML VIAL SC PRN (06:17)
[2022-03-22 08:29] LABS: Vancomycin, Trough 15.2 ug/mL
[2022-03-22] MEDS: Vancomycin 1.5 GRAM/300 ML BAG 1.5 GM in Premix Bag 1 BAG IVPB SCH (09:49)
[2022-03-22] MEDS: Famotidine 20 MG TAB PO SCH (09:50)
[2022-03-22] MEDS: Insulin Glargine 30 UNITS/0.3 ML VIAL SC SCH (09:50)
[2022-03-22] MEDS: Amoxicillin/Potassium Clav 875 MG TAB PO SCH (09:50)
[2022-03-22] MEDS: Enoxaparin Sodium 40 MG/0.4 ML SYRINGE SC SCH (09:51)
[2022-03-22 12:37] VITALS: BP 141/89; TEMP 97.8
== END 2022-03-22 16:29 | disposition home or self-care (01) | DRG 638 ==
LOC: ERS 05:12 → SJJU 08:03
PROVIDERS: ADMIT Internal Medicine; ATTEND Family Medicine
DX: E11.628 Type 2 diabetes mellitus with other skin complications (principal); L02.612 Cutaneous abscess of left foot; L03.116 Cellulitis of left lower limb; Z20.822 Contact with and (suspected) exposure to COVID-19; E66.01 Morbid (severe) obesity due to excess calories; Z68.32 Body mass index [BMI] 32.0-32.9, adult; Z88.2 Allergy status to sulfonamides; Z79.2 Long term (current) use of antibiotics; Z90.49 Acquired absence of other specified parts of digestive tract; Z86.16 Personal history of COVID-19; Z80.1 Family history of malignant neoplasm of trachea, bronchus and lung
CPT/HCPCS: 36415; 36416; 80048; 80053; 80202; 83036; 83605; 85025; 86140; 87040; 87070; 87077; 87186; 87205; 96361; 96365; 96367; 97139; J0692; J1650; J1815; J2543; J3370; J3490; J7050; U0002

== ENCOUNTER 2022-04-26 21:12 | Emergency (ER) | payer SELFPAY ==
[2022-04-26 22:19] LABS: #Eosinphils 0.1 thou/uL (0.0-0.7); #Lymphocytes 1.2 thou/uL (1.20-3.40); #Monocytes 0.4 thou/uL (0.11-0.59); #Neutrophils 3.8 thou/uL (1.40-6.50); %Basophils 0.7 % (0.0-1.0); %Eosinophils 1.7 % (0.0-10.0); %Lymphocytes 21.1 % (21.0-51.0); %Monocytes 7.5 % (0.0-10.0); Hemoglobin 12.4 g/dL (14.0-18.0); Mean Corpuscular HGB CONC 33.4 g/dL (32.0-36.0); Mean Corpuscular Hemoglobin 29.8 pg (27.0-31.0); Mean Corpuscular Volume 89.4 fL (78.0-98.0); Mean Platelet Volume 8.7 fL (7.4-10.4); Platelet Count 154 thou/uL (130-400); RBC Distribution Width 12.3 % (11.5-14.5); Red Blood Cell (RBC) Count 4.16 mill/uL (4.70-6.10); White Blood Cell (WBC) Count 5.6 thou/uL (4.8-10.8)
[2022-04-26 22:40] LABS: ALT (SGPT) 35 U/L (8-55); AST (SGOT) 23 U/L (5-34); Alkaline Phosphatase 63 U/L (40-110); Anion Gap 13 mmol/L (10-20); BUN (Urea Nitrogen) 21 mg/dL (8.4-25.7); Bilirubin, Total 0.6 mg/dL (0.2-1.2); Calc. Creatinine Clearance 0 mL/min (70-130); Calcium 9.7 mg/dL (7.8-10.44); Carbon Dioxide 25 mmol/L (22-29); Chloride 103 mmol/L (98-107); Estimated GFR 77; Globulin 3.2 g/dL (2.4-3.5); Glucose 411 mg/dL (70-105); Potassium 4.6 mmol/L (3.5-5.1); Protein, Total 7.2 g/dL (6.0-8.3); Sodium 136 mmol/L (136-145)
== END 2022-04-26 23:30 | disposition home or self-care (01) ==
LOC: ERS 21:12
DX: E11.621 Type 2 diabetes mellitus with foot ulcer (principal)
CPT/HCPCS: 36415; 80053; 83605; 85025; 85652; 86140; 87040; 87070; 87205

== ENCOUNTER 2022-08-14 01:20 | Emergency (ER) | payer SELFPAY ==
[2022-08-14 01:57] LABS: #Eosinphils 0.1 thou/uL (0.0-0.7); #Lymphocytes 1.3 thou/uL (1.20-3.40); #Monocytes 0.8 thou/uL (0.11-0.59); #Neutrophils 6.7 thou/uL (1.40-6.50); %Basophils 0.2 % (0.0-1.0); %Eosinophils 0.6 % (0.0-10.0); %Lymphocytes 14.3 % (21.0-51.0); %Monocytes 8.5 % (0.0-10.0); %Neutrophils 76.3 % (42.0-75.0); Hemoglobin 12.8 g/dL (14.0-18.0); Mean Corpuscular HGB CONC 34.5 g/dL (32.0-36.0); Mean Corpuscular Hemoglobin 29.8 pg (27.0-31.0); Mean Corpuscular Volume 86.3 fl (78.0-98.0); Mean Platelet Volume 8.9 fL (7.4-10.4); Platelet Count 161 10x3/uL (130-400); Red Blood Cell (RBC) Count 4.28 mill/uL (4.70-6.10); White Blood Cell (WBC) Count 8.7 10x3/uL (4.8-10.8)
[2022-08-14 02:18] LABS: ALT (SGPT) 17 U/L (8-55); AST (SGOT) 15 U/L (5-34); Alkaline Phosphatase 58 U/L (40-110); Anion Gap 13 mmol/L (10-20); BUN (Urea Nitrogen) 27 mg/dL (8.4-25.7); Bilirubin, Total 0.9 mg/dL (0.2-1.2); Calc. Creatinine Clearance 0 mL/min (70-130); Calcium 9.1 mg/dL (7.8-10.44); Carbon Dioxide 24 mmol/L (22-29); Chloride 101 mmol/L (98-107); Estimated GFR 61; Globulin 3.2 g/dL (2.4-3.5); Potassium 4.1 mmol/L (3.5-5.1); Protein, Total 7.2 g/dL (6.0-8.3); Sodium 134 mmol/L (136-145)
[2022-08-14 02:23] LABS: Glucose 408 mg/dL (70-105)
== END 2022-08-14 02:39 | disposition left against medical advice (07) ==
LOC: ERS 01:20
DX: Z53.21 Procedure and treatment not carried out due to patient leaving prior to being seen by health care provider (principal)
CPT/HCPCS: 36415; 80053; 83605; 85025

== ENCOUNTER 2022-08-14 08:13 | Emergency (ER) | payer SELFPAY ==
[2022-08-14 09:24] LABS: #Eosinphils 0.1 thou/uL (0.0-0.7); #Lymphocytes 1.2 thou/uL (1.20-3.40); #Monocytes 0.6 thou/uL (0.11-0.59); #Neutrophils 4.1 thou/uL (1.40-6.50); %Basophils 0.2 % (0.0-1.0); %Eosinophils 1.5 % (0.0-10.0); %Lymphocytes 19.6 % (21.0-51.0); %Monocytes 9.9 % (0.0-10.0); %Neutrophils 68.9 % (42.0-75.0); Mean Corpuscular Hemoglobin 29.8 pg (27.0-31.0); Mean Corpuscular Volume 87.6 fl (78.0-98.0); Mean Platelet Volume 8.8 fL (7.4-10.4); Platelet Count 169 10x3/uL (130-400); RBC Distribution Width 12.1 % (11.5-14.5); Red Blood Cell (RBC) Count 4.37 mill/uL (4.70-6.10)
[2022-08-14] MEDS ORDERED: Lidocaine 1% MPF 2 ML VIAL ONE (09:43)
[2022-08-14] MEDS ORDERED: cefTRIAXone\\ROCEPHIN 1 GM VIAL ONE (09:43)
[2022-08-14 09:44] LABS: ALT (SGPT) 16 U/L (8-55); AST (SGOT) 18 U/L (5-34); Alkaline Phosphatase 65 U/L (40-110); Anion Gap 15 mmol/L (10-20); BUN (Urea Nitrogen) 24 mg/dL (8.4-25.7); Bilirubin, Total 0.9 mg/dL (0.2-1.2); Calc. Creatinine Clearance 0 mL/min (70-130); Calcium 9.4 mg/dL (7.8-10.44); Carbon Dioxide 20 mmol/L (22-29); Chloride 105 mmol/L (98-107); Estimated GFR 82; Globulin 3.5 g/dL (2.4-3.5); Glucose 326 mg/dL (70-105); Potassium 4.1 mmol/L (3.5-5.1); Protein, Total 7.5 g/dL (6.0-8.3); Sodium 136 mmol/L (136-145)
== END 2022-08-14 10:02 | disposition home or self-care (01) ==
LOC: ERS 08:13
DX: E11.621 Type 2 diabetes mellitus with foot ulcer (principal)
CPT/HCPCS: 36415; 83605; 86140; 96372; J0696

== ENCOUNTER 2023-03-19 09:19 | Inpatient (IN) | payer OTHER, SELFPAY ==
[2023-03-19] MEDS ORDERED: Piperacillin/Tazobactam 4.5 GM VIAL ONE (09:35)
[2023-03-19 09:53] LABS: Actual Bicarbonate (HCO3v) 22.2 mEq/L (22-28); Base Excess -1.7 mEq/L (-2.0 to +3.0); Calcium, Ionized (venous) 1.14 mmol/L (1.16-1.32); Chloride (VBG) 99 mmol/L (98-106); Hematocrit-VBG 40 % (42.0-52.0); Hemoglobin (Hb) 13.6 g/dL (13.1-17.2); Potassium (VBG) 4.25 mmol/L (3.70-5.30); Sodium 133.8 mmol/L (133-146); pH (venous) 7.417 (7.32-7.43)
[2023-03-19 10:09] LABS: #Monocytes 1.1 thou/uL (0.11-0.59); #Neutrophils 12.8 thou/uL (1.40-6.50); %Basophils 0.2 % (0.0-1.0); %Lymphocytes 6.9 % (21.0-51.0); %Monocytes 7.3 % (0.0-10.0); %Neutrophils 85.3 % (42.0-75.0); Hemoglobin 12.5 g/dL (14.0-18.0); Mean Corpuscular HGB CONC 34.7 g/dL (32.0-36.0); Mean Corpuscular Hemoglobin 29.1 pg (27.0-31.0); Mean Corpuscular Volume 83.7 fl (78.0-98.0); Mean Platelet Volume 11.3 fL (7.4-10.4); Platelet Count 193 10x3/uL (130-400); RBC Distribution Width 12.6 % (11.5-14.5)
[2023-03-19 10:23] LABS: Bacteria/HPF None Seen HPF (None Seen); Bilirubin Negative (Negative); Blood, Urine 2+ (Negative); CAUTI Indications for Culture Alt mental st,lethar; Clarity Clear (Clear); Glucose, Urine (Dipstick) Greater than 1000 mg/dL (Negative); Ketone, Urine 20 mg/dL (Negative); Leukocyte Negative Leu/uL (Negative); Nitrite Negative (Negative); Protein, Urine (Dipstick) 200 mg/dL (Neg-Trace); RBC/HPF 0-3 HPF (0-3); Specific Gravity, Urine 1.032 (1.002-1.036); Squamous Epithelial 0-3 HPF (0-3); Urobilinogen Normal mg/dL (Less than 2); WBC/HPF 0-3 HPF (0-3); pH, Urine 5.5 (5.0-9.0)
[2023-03-19 10:24] LABS: Urine Culture Reflex No No
[2023-03-19] MEDS ORDERED: Acetaminophen 500 MG TAB ONE (10:26)
[2023-03-19 10:28] LABS: ALT (SGPT) 19 U/L (8-55); AST (SGOT) 20 U/L (5-34); Albumin 3.7 g/dL (3.5-5.0); Alkaline Phosphatase 91 U/L (40-110); Anion Gap 16 mmol/L (10-20); BUN (Urea Nitrogen) 22 mg/dL (8.4-25.7); Bilirubin, Total 1.2 mg/dL (0.2-1.2); Calc. Creatinine Clearance 0 mL/min (70-130); Calcium 9.4 mg/dL (7.8-10.44); Carbon Dioxide 20 mmol/L (22-29); Estimated GFR 67; Globulin 3.8 g/dL (2.4-3.5); Potassium 4.2 mmol/L (3.5-5.1); Protein, Total 7.5 g/dL (6.0-8.3)
[2023-03-19 10:35] LABS: Chloride 100 mmol/L (98-107); Glucose 401 mg/dL (70-105); Sodium 132 mmol/L (136-145)
[2023-03-19] MEDS ORDERED: HYDROcodone/Acetaminophen 5/325 mg Tablet PO PRN (11:29)
[2023-03-19] MEDS ORDERED: Glucagon 1 MG/ML KIT IM PRN (11:33)
[2023-03-19] MEDS ORDERED: Dextrose 50% Abboject 50 ML SYRINGE SLOW IVP PRN (11:33)
[2023-03-19] MEDS ORDERED: Dextrose 5% in Water 1,000 ML IV PRN (11:33)
[2023-03-19] MEDS ORDERED: Vancomycin 1.5 GRAM/300 ML BAG 1.5 GM in Premix Bag 1 BAG IVPB SCH (12:00)
[2023-03-19] MEDS ORDERED: Insulin Glargine 30 UNITS/0.3 ML VIAL SC SCH ×3 (12:30→21:00)
[2023-03-19 12:44] LABS: Troponin I 0.013 ng/mL (< 0.028)
[2023-03-19 12:45] VITALS: BMI 31.4
[2023-03-19] MEDS ORDERED: VANCOMYCIN IVPB PRN (13:04)
[2023-03-19 13:44] LABS: Lactic Acid 1.8 mmol/L (0.5-2.2)
[2023-03-19] MEDS ORDERED: Cefepime 2 GM in Sodium Chloride 0.9% 100 ML IVPB SCH (15:00)
[2023-03-19] MEDS: Sodium Chloride 0.9% 1,000 ML IV SCH (15:50)
[2023-03-19] MEDS: Cefepime 2 GM in Sodium Chloride 0.9% 100 ML IVPB SCH (15:54)
[2023-03-19] MEDS ORDERED: Vancomycin 1 GM in Premix Bag 1 BAG IVPB SCH (21:00)
[2023-03-19] MEDS: HumaLOG 300 UNITS/3 ML VIAL SC PRN (21:43)
[2023-03-19] MEDS: Acetaminophen 325 MG TAB PO PRN (21:45)
[2023-03-19] MEDS: Famotidine 20 MG TAB PO SCH (21:45)
[2023-03-20] MEDS ORDERED: Ibuprofen 200 MG TAB PO PRN (00:54)
[2023-03-20] MEDS ORDERED: Acetaminophen 325 MG TAB PO SCH (01:00)
[2023-03-20] MEDS: Cefepime 2 GM in Sodium Chloride 0.9% 100 ML IVPB SCH ×2 (01:55→13:48)
[2023-03-20] MEDS: Sodium Chloride 0.9% 1,000 ML IV SCH ×2 (01:55→15:13)
[2023-03-20] MEDS: VANCOMYCIN 1.25 GM/250 ML BAG 1.25 GM in Premix Bag 1 BAG IVPB SCH ×2 (02:03→15:13)
[2023-03-20] MEDS: HumaLOG 300 UNITS/3 ML VIAL SC PRN ×3 (06:05→23:51)
[2023-03-20 06:47] LABS: #Neutrophils 9.8 thou/uL (1.40-6.50); %Basophils 0.3 % (0.0-1.0); %Eosinophils 0.1 % (0.0-10.0); %Lymphocytes 8.5 % (21.0-51.0); %Monocytes 8.7 % (0.0-10.0); %Neutrophils 81.5 % (42.0-75.0); Hematocrit 29.7 % (42.0-52.0); Hemoglobin 10.1 g/dL (14.0-18.0); Mean Corpuscular Hemoglobin 29.5 pg (27.0-31.0); Mean Platelet Volume 11.1 fL (7.4-10.4); Platelet Count 140 10x3/uL (130-400); RBC Distribution Width 12.7 % (11.5-14.5); Red Blood Cell (RBC) Count 3.42 mill/uL (4.70-6.10)
[2023-03-20 06:56] LABS: Hemoglobin A1c 10.9 % (4.0-6.0)
[2023-03-20 07:08] LABS: Mean Corpuscular Volume 86.8 fl (78.0-98.0)
[2023-03-20 07:09] LABS: Anion Gap 13 mmol/L (10-20); BUN (Urea Nitrogen) 31 mg/dL (8.4-25.7); Calc. Creatinine Clearance 94 mL/min (70-130); Calcium 8.5 mg/dL (7.8-10.44); Carbon Dioxide 21 mmol/L (22-29); Chloride 104 mmol/L (98-107); Estimated GFR 67; Glucose 281 mg/dL (70-105); Potassium 3.7 mmol/L (3.5-5.1); Sodium 134 mmol/L (136-145)
[2023-03-20] MEDS: Famotidine 20 MG TAB PO SCH ×2 (08:12→21:28)
[2023-03-20] MEDS: Insulin Glargine 30 UNITS/0.3 ML VIAL SC SCH (08:12)
[2023-03-20] MEDS ORDERED: Losartan 25 MG TAB PO SCH (16:30)
[2023-03-20] MEDS ORDERED: Insulin Glargine 30 UNITS/0.3 ML VIAL SC SCH (21:00)
[2023-03-20] MEDS: Acetaminophen 325 MG TAB PO PRN (23:48)
[2023-03-21] MEDS: Cefepime 2 GM in Sodium Chloride 0.9% 100 ML IVPB SCH (00:52)
[2023-03-21 02:26] LABS: Vancomycin, Trough 16.5 ug/mL
[2023-03-21] MEDS: VANCOMYCIN 1.25 GM/250 ML BAG 1.25 GM in Premix Bag 1 BAG IVPB SCH (02:45)
[2023-03-21] MEDS: Acetaminophen 325 MG TAB PO PRN ×2 (04:44→21:35)
[2023-03-21] MEDS: Sodium Chloride 0.9% 1,000 ML IV SCH ×3 (04:51→17:52)
[2023-03-21] MEDS ORDERED: Sevoflurane 250 ML INH ANEST BOTTLE ONE (05:19)
[2023-03-21 06:49] LABS: #Monocytes 0.8 thou/uL (0.11-0.59); #Neutrophils 9.8 thou/uL (1.40-6.50); %Basophils 0.3 % (0.0-1.0); %Eosinophils 0.1 % (0.0-10.0); %Lymphocytes 5.4 % (21.0-51.0); %Monocytes 6.6 % (0.0-10.0); %Neutrophils 86.1 % (42.0-75.0); Hematocrit 31.3 % (42.0-52.0); Hemoglobin 10.2 g/dL (14.0-18.0); Mean Corpuscular HGB CONC 32.6 g/dL (32.0-36.0); Mean Corpuscular Hemoglobin 28.7 pg (27.0-31.0); Mean Corpuscular Volume 87.9 fl (78.0-98.0); Mean Platelet Volume 11.8 fL (7.4-10.4); Platelet Count 156 10x3/uL (130-400); RBC Distribution Width 12.7 % (11.5-14.5); Red Blood Cell (RBC) Count 3.56 mill/uL (4.70-6.10); White Blood Cell (WBC) Count 11.4 10x3/uL (4.8-10.8)
[2023-03-21] MEDS ORDERED: fentaNYL 50 mcg/mL 1 mL Vial ONE ×2 (07:06→09:02)
[2023-03-21] MEDS ORDERED: Midazolam HCl 2 mg/2 ml Vial ONE (07:06)
[2023-03-21] MEDS ORDERED: Norepinephrine 4 MG/4 ML VIAL ONE (07:06)
[2023-03-21 07:07] LABS: Anion Gap 12 mmol/L (10-20); BUN (Urea Nitrogen) 33 mg/dL (8.4-25.7); Calc. Creatinine Clearance 112 mL/min (70-130); Calcium 8.5 mg/dL (7.8-10.44); Carbon Dioxide 18 mmol/L (22-29); Cardiac Risk 4.2 (Less than 4.5); Chloride 105 mmol/L (98-107); Cholesterol 133 mg/dl (< 200 Desired); Estimated GFR 83; Glucose 218 mg/dL (70-105); HDL Cholesterol 32 mg/dL (>60 Neg Risk); LDL Cholesterol, Calculated 80 mg/dL; Potassium 3.6 mmol/L (3.5-5.1); Sodium 131 mmol/L (136-145); Triglycerides 107 mg/dL (Less than 150)
[2023-03-21] MEDS ORDERED: SUGAMMADEX SODIUM 200 MG/2 ML VIAL ONE (07:07)
[2023-03-21] MEDS ORDERED: Lidocaine 1% PF 5 ML VIAL ONE (07:37)
[2023-03-21] MEDS ORDERED: Rocuronium Bromide 10 MG/ML (10ML VIAL) ONE (07:37)
[2023-03-21] MEDS ORDERED: PROPOFOL 200 MG/20 ML VIAL ONE (07:37)
[2023-03-21] MEDS ORDERED: PHENYLEPHRINE-NS 100 MCG/ML 10 ML SYRINGE ONE (07:37)
[2023-03-21] MEDS ORDERED: Ondansetron PF 4 MG/2 ML Vial ONE (07:37)
[2023-03-21] MEDS: Insulin Glargine 30 UNITS/0.3 ML VIAL SC SCH ×2 (08:22→21:38)
[2023-03-21] MEDS: Famotidine 20 MG TAB PO SCH ×2 (08:22→21:33)
[2023-03-21] MEDS ORDERED: fentaNYL 50 mcg/mL 1 mL Vial SLOW IVP PRN (09:55)
[2023-03-21] MEDS: Losartan 25 MG TAB PO SCH (10:42)
[2023-03-21] MEDS ORDERED: metroNIDAZOLE 500 MG TAB PO SCH (11:15)
[2023-03-21] MEDS: cefTRIAXone\\ROCEPHIN 2 GM in Sodium Chloride 0.9% 100 ML IVPB SCH (12:23)
[2023-03-21] MEDS ORDERED: HYDROcodone/Acetaminophen 5/325 mg Tablet PO PRN (14:41)
[2023-03-21] MEDS ORDERED: HYDROcodone/Acetaminophen 10/325 mg Tablet PO PRN (14:42)
[2023-03-21] MEDS: HumaLOG 300 UNITS/3 ML VIAL SC PRN (18:49)
[2023-03-21] MEDS: metroNIDAZOLE 500 MG TAB PO SCH (21:35)
[2023-03-22 07:19] LABS: #Eosinphils 0.1 thou/uL (0.0-0.7); #Monocytes 0.7 thou/uL (0.11-0.59); #Neutrophils 7.7 thou/uL (1.40-6.50); %Basophils 0.2 % (0.0-1.0); %Eosinophils 0.9 % (0.0-10.0); %Lymphocytes 11.6 % (21.0-51.0); %Monocytes 7.1 % (0.0-10.0); %Neutrophils 79.8 % (42.0-75.0); Hematocrit 29.9 % (42.0-52.0); Hemoglobin 9.6 g/dL (14.0-18.0); Mean Corpuscular HGB CONC 32.1 g/dL (32.0-36.0); Mean Corpuscular Hemoglobin 28.7 pg (27.0-31.0); Mean Corpuscular Volume 89.5 fl (78.0-98.0); Mean Platelet Volume 11.2 fL (7.4-10.4); Platelet Count 176 10x3/uL (130-400); RBC Distribution Width 13.2 % (11.5-14.5); Red Blood Cell (RBC) Count 3.34 mill/uL (4.70-6.10); White Blood Cell (WBC) Count 9.7 10x3/uL (4.8-10.8)
[2023-03-22] MEDS: Sodium Chloride 0.9% 1,000 ML IV SCH (07:21)
[2023-03-22 07:35] LABS: Anion Gap 9 mmol/L (10-20); BUN (Urea Nitrogen) 29 mg/dL (8.4-25.7); Calc. Creatinine Clearance 119 mL/min (70-130); Calcium 8.6 mg/dL (7.8-10.44); Carbon Dioxide 19 mmol/L (22-29); Chloride 110 mmol/L (98-107); Estimated GFR 89; Glucose 135 mg/dL (70-105); Potassium 3.4 mmol/L (3.5-5.1); Sodium 135 mmol/L (136-145)
[2023-03-22] MEDS: metroNIDAZOLE 500 MG TAB PO SCH ×3 (08:21→20:09)
[2023-03-22] MEDS: Losartan 25 MG TAB PO SCH (08:21)
[2023-03-22] MEDS: Famotidine 20 MG TAB PO SCH ×2 (08:21→20:09)
[2023-03-22] MEDS: Insulin Glargine 30 UNITS/0.3 ML VIAL SC SCH ×2 (08:21→20:10)
[2023-03-22] MEDS ORDERED: Electrolyte Replacement Protocol 1 EACH FS SCH (12:45)
[2023-03-22] MEDS: cefTRIAXone\\ROCEPHIN 2 GM in Sodium Chloride 0.9% 100 ML IVPB SCH (13:15)
[2023-03-22] MEDS ORDERED: Potassium Chloride 20 MEQ TAB PO SCH (14:15)
[2023-03-22 19:40] LABS: Potassium 4.1 mmol/L (3.5-5.1)
[2023-03-23] MEDS: Ondansetron PF 4 MG/2 ML Vial IVP PRN (01:29)
[2023-03-23 05:47] LABS: #Eosinphils 0.1 thou/uL (0.0-0.7); #Monocytes 0.8 thou/uL (0.11-0.59); %Basophils 0.3 % (0.0-1.0); %Eosinophils 1.7 % (0.0-10.0); %Lymphocytes 10.2 % (21.0-51.0); %Monocytes 10.8 % (0.0-10.0); %Neutrophils 76.7 % (42.0-75.0); Hematocrit 30.1 % (42.0-52.0); Mean Corpuscular HGB CONC 33.2 g/dL (32.0-36.0); Mean Corpuscular Hemoglobin 28.8 pg (27.0-31.0); Mean Platelet Volume 10.9 fL (7.4-10.4); Platelet Count 211 10x3/uL (130-400); RBC Distribution Width 13.1 % (11.5-14.5); Red Blood Cell (RBC) Count 3.47 mill/uL (4.70-6.10); White Blood Cell (WBC) Count 7.8 10x3/uL (4.8-10.8)
[2023-03-23 05:54] LABS: Mean Corpuscular Volume 86.7 fl (78.0-98.0)
[2023-03-23 06:09] LABS: Anion Gap 12 mmol/L (10-20); BUN (Urea Nitrogen) 25 mg/dL (8.4-25.7); Calc. Creatinine Clearance 112 mL/min (70-130); Calcium 8.5 mg/dL (7.8-10.44); Carbon Dioxide 21 mmol/L (22-29); Chloride 109 mmol/L (98-107); Estimated GFR 83; Glucose 163 mg/dL (70-105); Potassium 3.8 mmol/L (3.5-5.1); Sodium 138 mmol/L (136-145)
[2023-03-23] MEDS: metroNIDAZOLE 500 MG TAB PO SCH ×3 (08:55→19:57)
[2023-03-23] MEDS: Losartan 25 MG TAB PO SCH (08:55)
[2023-03-23] MEDS: Famotidine 20 MG TAB PO SCH ×2 (08:55→19:57)
[2023-03-23] MEDS: Insulin Glargine 30 UNITS/0.3 ML VIAL SC SCH ×2 (08:56→20:48)
[2023-03-23] MEDS: cefTRIAXone\\ROCEPHIN 2 GM in Sodium Chloride 0.9% 100 ML IVPB SCH (12:16)
[2023-03-23] MEDS: HumaLOG 300 UNITS/3 ML VIAL SC PRN (17:22)
[2023-03-24] MEDS: Ondansetron PF 4 MG/2 ML Vial IVP PRN (00:35)
[2023-03-24] MEDS: Losartan 25 MG TAB PO SCH (09:07)
[2023-03-24] MEDS: metroNIDAZOLE 500 MG TAB PO SCH ×3 (09:08→20:44)
[2023-03-24] MEDS: Famotidine 20 MG TAB PO SCH ×2 (09:08→20:44)
[2023-03-24] MEDS: Insulin Glargine 30 UNITS/0.3 ML VIAL SC SCH ×2 (09:08→22:16)
[2023-03-24 09:53] LABS: #Eosinphils 0.2 thou/uL (0.0-0.7); #Monocytes 0.7 thou/uL (0.11-0.59); #Neutrophils 3.9 thou/uL (1.40-6.50); %Basophils 0.2 % (0.0-1.0); %Eosinophils 3.3 % (0.0-10.0); %Monocytes 11.3 % (0.0-10.0); %Neutrophils 64.9 % (42.0-75.0); Hematocrit 29.3 % (42.0-52.0); Hemoglobin 9.4 g/dL (14.0-18.0); Mean Corpuscular HGB CONC 32.1 g/dL (32.0-36.0); Mean Corpuscular Hemoglobin 28.4 pg (27.0-31.0); Mean Corpuscular Volume 88.5 fl (78.0-98.0); Mean Platelet Volume 10.6 fL (7.4-10.4); Platelet Count 251 10x3/uL (130-400); Red Blood Cell (RBC) Count 3.31 mill/uL (4.70-6.10)
[2023-03-24 10:14] LABS: Anion Gap 7 mmol/L (10-20); BUN (Urea Nitrogen) 22 mg/dL (8.4-25.7); Calc. Creatinine Clearance 137 mL/min (70-130); Calcium 8.7 mg/dL (7.8-10.44); Carbon Dioxide 25 mmol/L (22-29); Chloride 110 mmol/L (98-107); Estimated GFR 101; Glucose 138 mg/dL (70-105); Potassium 3.9 mmol/L (3.5-5.1); Sodium 138 mmol/L (136-145)
[2023-03-24] MEDS: cefTRIAXone\\ROCEPHIN 2 GM in Sodium Chloride 0.9% 100 ML IVPB SCH (11:59)
[2023-03-25] MEDS: Insulin Glargine 30 UNITS/0.3 ML VIAL SC SCH ×2 (08:31→20:41)
[2023-03-25] MEDS: Losartan 25 MG TAB PO SCH (08:31)
[2023-03-25] MEDS: metroNIDAZOLE 500 MG TAB PO SCH ×3 (08:31→20:35)
[2023-03-25] MEDS: Famotidine 20 MG TAB PO SCH ×2 (08:31→20:35)
[2023-03-25 08:37] LABS: #Eosinphils 0.2 thou/uL (0.0-0.7); #Monocytes 0.7 thou/uL (0.11-0.59); #Neutrophils 3.4 thou/uL (1.40-6.50); %Basophils 0.4 % (0.0-1.0); %Eosinophils 3.5 % (0.0-10.0); %Lymphocytes 23.5 % (21.0-51.0); %Monocytes 12.3 % (0.0-10.0); %Neutrophils 59.9 % (42.0-75.0); Hematocrit 32.7 % (42.0-52.0); Hemoglobin 10.7 g/dL (14.0-18.0); Mean Corpuscular HGB CONC 32.7 g/dL (32.0-36.0); Mean Corpuscular Volume 88.6 fl (78.0-98.0); Mean Platelet Volume 10.6 fL (7.4-10.4); Platelet Count 312 10x3/uL (130-400); Red Blood Cell (RBC) Count 3.69 mill/uL (4.70-6.10); White Blood Cell (WBC) Count 5.7 10x3/uL (4.8-10.8)
[2023-03-25 09:00] LABS: Anion Gap 12 mmol/L (10-20); BUN (Urea Nitrogen) 18 mg/dL (8.4-25.7); Calc. Creatinine Clearance 125 mL/min (70-130); Carbon Dioxide 23 mmol/L (22-29); Chloride 107 mmol/L (98-107); Estimated GFR 95; Glucose 164 mg/dL (70-105); Potassium 3.7 mmol/L (3.5-5.1); Sodium 138 mmol/L (136-145)
[2023-03-25] MEDS: cefTRIAXone\\ROCEPHIN 2 GM in Sodium Chloride 0.9% 100 ML IVPB SCH (11:43)
[2023-03-26] MEDS: metroNIDAZOLE 500 MG TAB PO SCH ×3 (08:55→21:54)
[2023-03-26] MEDS: Losartan 25 MG TAB PO SCH (08:55)
[2023-03-26] MEDS: Famotidine 20 MG TAB PO SCH ×2 (08:56→21:54)
[2023-03-26] MEDS: Insulin Glargine 30 UNITS/0.3 ML VIAL SC SCH ×2 (09:32→21:55)
[2023-03-26] MEDS: cefTRIAXone\\ROCEPHIN 2 GM in Sodium Chloride 0.9% 100 ML IVPB SCH (12:24)
[2023-03-27 00:04] VITALS: TEMP 98.1
[2023-03-27 06:30] LABS: #Eosinphils 0.2 thou/uL (0.0-0.7); #Monocytes 0.7 thou/uL (0.11-0.59); #Neutrophils 3.8 thou/uL (1.40-6.50); %Basophils 0.3 % (0.0-1.0); %Eosinophils 3.6 % (0.0-10.0); %Lymphocytes 27.8 % (21.0-51.0); %Monocytes 10.5 % (0.0-10.0); %Neutrophils 57.2 % (42.0-75.0); Hematocrit 33.3 % (42.0-52.0); Hemoglobin 10.9 g/dL (14.0-18.0); Mean Corpuscular HGB CONC 32.7 g/dL (32.0-36.0); Mean Corpuscular Hemoglobin 28.7 pg (27.0-31.0); Mean Corpuscular Volume 87.6 fl (78.0-98.0); Mean Platelet Volume 10.1 fL (7.4-10.4); Platelet Count 403 10x3/uL (130-400); RBC Distribution Width 13.1 % (11.5-14.5); White Blood Cell (WBC) Count 6.7 10x3/uL (4.8-10.8)
[2023-03-27 07:00] LABS: Anion Gap 11 mmol/L (10-20); BUN (Urea Nitrogen) 15 mg/dL (8.4-25.7); Calc. Creatinine Clearance 134 mL/min (70-130); Calcium 9.2 mg/dL (7.8-10.44); Carbon Dioxide 25 mmol/L (22-29); Chloride 106 mmol/L (98-107); Estimated GFR 100; Glucose 120 mg/dL (70-105); Potassium 3.7 mmol/L (3.5-5.1); Sodium 138 mmol/L (136-145)
[2023-03-27] MEDS: Famotidine 20 MG TAB PO SCH (09:18)
[2023-03-27] MEDS: metroNIDAZOLE 500 MG TAB PO SCH ×2 (09:18→15:45)
[2023-03-27] MEDS: Losartan 25 MG TAB PO SCH (09:18)
[2023-03-27] MEDS: Insulin Glargine 30 UNITS/0.3 ML VIAL SC SCH (09:19)
[2023-03-27 12:26] VITALS: BP 125/82
[2023-03-27] MEDS: cefTRIAXone\\ROCEPHIN 2 GM in Sodium Chloride 0.9% 100 ML IVPB SCH (12:36)
== END 2023-03-27 16:20 | disposition home or self-care (01) | DRG 854 ==
LOC: ERS 09:19 → ERHOLD 11:21 → INTOOBSV 11:21 → OBSVTOIN 11:29 → T4-B 11:37
PROVIDERS: ADMIT Family Medicine; ATTEND Internal Medicine
PROC: 3E03329 Introduction of Other Anti-infective into Peripheral Vein, Percutaneous Approach (ICD-10-PCS; principal; 2023-03-19)
PROC: 4A043R1 Measurement of Venous Saturation, Peripheral, Percutaneous Approach (ICD-10-PCS; 2023-03-19)
PROC: 0Y6N0ZD Detachment at Left Foot, Partial 4th Ray, Open Approach (ICD-10-PCS; 2023-03-21)
PROC: 0Y6N0ZF Detachment at Left Foot, Partial 5th Ray, Open Approach (ICD-10-PCS; 2023-03-21)
DX: A40.8 Other streptococcal sepsis (principal); D62 Acute posthemorrhagic anemia; L03.116 Cellulitis of left lower limb; L02.612 Cutaneous abscess of left foot; E11.621 Type 2 diabetes mellitus with foot ulcer; L97.529 Non-pressure chronic ulcer of other part of left foot with unspecified severity; E11.65 Type 2 diabetes mellitus with hyperglycemia; Z20.822 Contact with and (suspected) exposure to COVID-19; Z60.2 Problems related to living alone; I10 Essential (primary) hypertension; F32.A Depression, unspecified; Z90.49 Acquired absence of other specified parts of digestive tract; Z88.2 Allergy status to sulfonamides; Z79.4 Long term (current) use of insulin; Z79.899 Other long term (current) drug therapy; E66.3 Overweight; Z68.31 Body mass index [BMI] 31.0-31.9, adult
CPT/HCPCS: 36415; 36416; 71045; 80048; 80053; 80061; 80202; 81001; 82010; 82805; 83036; 83605; 84443; 84484; 85025; 85652; 86140; 87040; 87070; 87076; 87077; 87086; 87149; 87186; 87205; 87635; 88305; 88311; 93005; 94760; 96365; 96375; 97139; J0692; J0696; J1650; J1815; J2250; J2405; J2543; J2704; J3010; J3370; J3490; J7050

== ENCOUNTER 2023-04-17 01:23 | Emergency (ER) | payer OTHER | END 2023-04-17 02:00 | disposition home or self-care (01) | LOC: ERS 01:23 | DX: Z48.01 Encounter for change or removal of surgical wound dressing (principal); E11.9 Type 2 diabetes mellitus without complications; Z79.84 Long term (current) use of oral hypoglycemic drugs | CPT/HCPCS: 99283 ==

== ENCOUNTER 2023-05-11 20:08 | Emergency (ER) | payer OTHER, SELFPAY ==
[2023-05-11 21:31] LABS: #Eosinphils 0.2 thou/uL (0.0-0.7); #Monocytes 0.5 thou/uL (0.11-0.59); #Neutrophils 3.5 thou/uL (1.40-6.50); %Basophils 0.6 % (0.0-1.0); %Eosinophils 3.1 % (0.0-10.0); %Lymphocytes 23.4 % (21.0-51.0); %Monocytes 8.7 % (0.0-10.0); Hemoglobin 11.7 g/dL (14.0-18.0); Mean Corpuscular HGB CONC 33.4 g/dL (32.0-36.0); Mean Corpuscular Hemoglobin 28.2 pg (27.0-31.0); Mean Corpuscular Volume 84.3 fl (78.0-98.0); Mean Platelet Volume 10.4 fL (7.4-10.4); Platelet Count 234 10x3/uL (130-400); RBC Distribution Width 13.1 % (11.5-14.5); Red Blood Cell (RBC) Count 4.15 mill/uL (4.70-6.10); White Blood Cell (WBC) Count 5.4 10x3/uL (4.8-10.8)
[2023-05-11 21:52] LABS: ALT (SGPT) 10 U/L (8-55); AST (SGOT) 11 U/L (5-34); Albumin 4.2 g/dL (3.5-5.0); Alkaline Phosphatase 91 U/L (40-110); Anion Gap 13 mmol/L (10-20); BUN (Urea Nitrogen) 24 mg/dL (8.4-25.7); Bilirubin, Total 0.3 mg/dL (0.2-1.2); Calc. Creatinine Clearance 0 mL/min (70-130); Calcium 9.6 mg/dL (7.8-10.44); Carbon Dioxide 26 mmol/L (22-29); Chloride 102 mmol/L (98-107); Estimated GFR 55; Globulin 3.7 g/dL (2.4-3.5); Potassium 4.8 mmol/L (3.5-5.1); Protein, Total 7.9 g/dL (6.0-8.3); Sodium 136 mmol/L (136-145)
[2023-05-11 21:59] LABS: Glucose 443 mg/dL (70-105)
[2023-05-11] MEDS ORDERED: Cefepime 2 GM VIAL ONE (23:21)
[2023-05-12] MEDS ORDERED: Bacitracin 1 PK ONE (01:05)
[2023-05-12] MEDS ORDERED: Ketorolac Tromethamine 30 MG/ML VIAL ONE (01:05)
== END 2023-05-12 01:17 | disposition home or self-care (01) ==
LOC: ERS 20:08
DX: M79.672 Pain in left foot (principal); E11.9 Type 2 diabetes mellitus without complications
CPT/HCPCS: 36415; 80053; 83605; 85025; 86140; 87040; 96365; 96375; J0692; J1885

== ENCOUNTER 2023-09-28 18:07 | Emergency (ER) | payer SELFPAY ==
[2023-09-28 20:07] LABS: #Eosinphils 0.2 thou/uL (0.0-0.7); #Monocytes 0.6 thou/uL (0.11-0.59); #Neutrophils 4.3 thou/uL (1.40-6.50); %Basophils 0.3 % (0.0-1.0); %Eosinophils 2.6 % (0.0-10.0); %Lymphocytes 20.4 % (21.0-51.0); %Neutrophils 67.4 % (42.0-75.0); Hematocrit 34.4 % (42.0-52.0); Hemoglobin 11.6 g/dL (14.0-18.0); Mean Corpuscular HGB CONC 33.7 g/dL (32.0-36.0); Mean Corpuscular Volume 83.1 fl (78.0-98.0); Mean Platelet Volume 10.5 fL (7.4-10.4); Platelet Count 235 10x3/uL (130-400); RBC Distribution Width 12.7 % (11.5-14.5); Red Blood Cell (RBC) Count 4.14 mill/uL (4.70-6.10); White Blood Cell (WBC) Count 6.4 10x3/uL (4.8-10.8)
[2023-09-28 20:30] LABS: ALT (SGPT) 13 U/L (8-55); AST (SGOT) 19 U/L (5-34); Albumin 3.8 g/dL (3.5-5.0); Alkaline Phosphatase 103 U/L (40-110); Anion Gap 12 mmol/L (10-20); BUN (Urea Nitrogen) 21 mg/dL (8.4-25.7); Bilirubin, Total 0.4 mg/dL (0.2-1.2); Calc. Creatinine Clearance 0 mL/min (70-130); Calcium 9.5 mg/dL (7.8-10.44); Carbon Dioxide 23 mmol/L (22-29); Chloride 106 mmol/L (98-107); Estimated GFR 72; Globulin 4.2 g/dL (2.4-3.5); Glucose 210 mg/dL (70-105); Potassium 4.4 mmol/L (3.5-5.1); Sodium 137 mmol/L (136-145)
[2023-09-28] MEDS ORDERED: Clindamycin 150 MG CAP ONE (21:21)
== END 2023-09-28 21:29 | disposition home or self-care (01) ==
LOC: ERS 18:07
DX: H01.003 Unspecified blepharitis right eye, unspecified eyelid (principal); R60.9 Edema, unspecified; E11.9 Type 2 diabetes mellitus without complications; L08.9 Local infection of the skin and subcutaneous tissue, unspecified
CPT/HCPCS: 36415; 71045; 80053; 83880; 84484; 85025; 93005

== ENCOUNTER 2024-08-14 14:23 | Outpatient (CLI) | payer OTHER | END 2024-08-14 14:24 | disposition home or self-care (01) | LOC: BICRAD 14:23 | PROVIDERS: ATTEND Internal Medicine | DX: Z02.71 Encounter for disability determination (principal); M76.892 Other specified enthesopathies of left lower limb, excluding foot; I70.90 Unspecified atherosclerosis ==

== ENCOUNTER 2025-05-29 08:20 | Emergency (ER) | payer OTHER ==
[2025-05-29] MEDS ORDERED: cloNIDine 0.1 MG TAB ONE (09:45)
== END 2025-05-29 10:32 | disposition home or self-care (01) ==
LOC: ERS 08:20
DX: Z76.0 Encounter for issue of repeat prescription (principal); E11.9 Type 2 diabetes mellitus without complications
CPT/HCPCS: 99281

== ENCOUNTER 2025-06-13 05:43 | Emergency (ER) | payer OTHER ==
[2025-06-13] MEDS ORDERED: Acetaminophen 500 MG TAB ONE (06:12)
[2025-06-13] MEDS ORDERED: Lidocaine 1% w/Epinephrine 1:100K 20 ML VIAL ONE (06:13)
[2025-06-13 06:34] LABS: #Basophils Less than 0.03 10x3/uL (0.0-0.2); #Eosinophils 0.16 10x3/uL (0.0-0.7); #Monocytes 0.77 10x3/uL (0.11-0.59); #Neutrophils 7.18 10x3/uL (1.40-6.50); %Basophils 0.2 % (0.0-1.0); %Eosinophils 1.8 % (0.0-10.0); %Lymphocytes 9.1 % (21.0-51.0); %Monocytes 8.6 % (0.0-10.0); %Neutrophils 80.1 % (42.0-75.0); Hematocrit 33.0 % (42.0-52.0); Hemoglobin 10.8 g/dL (14.0-18.0); Mean Corpuscular Hemoglobin 28.6 pg (27.0-31.0); Mean Corpuscular Volume 87.3 fL (78.0-98.0); Platelet Count 207 10x3/uL (130-400); Red Blood Cell (RBC) Count 3.78 mill/uL (4.70-6.10); White Blood Cell (WBC) Count 8.97 10x3/uL (4.8-10.8)
[2025-06-13 06:52] LABS: ALT (SGPT) 17 U/L (Less than 45); AST (SGOT) 15 U/L (11-34); Albumin 3.5 g/dL (3.1-4.5); Alkaline Phosphatase 111 U/L (40-110); Anion Gap 12 mmol/L (10-20); BUN (Urea Nitrogen) 22 mg/dL (8.4-25.7); Bilirubin, Total 0.6 mg/dL (0.3-1.2); Calc. Creatinine Clearance 0 mL/min (70-130); Calcium 9.3 mg/dL (7.8-10.44); Carbon Dioxide 19 mmol/L (22-29); Chloride 112 mmol/L (98-107); Globulin 3.9 g/dL (2.4-3.5); Glucose 241 mg/dL (70-105); Potassium 4.5 mmol/L (3.5-5.1); Sodium 138 mmol/L (136-145)
== END 2025-06-13 07:11 | disposition home or self-care (01) ==
LOC: ERS 05:43
DX: L02.31 Cutaneous abscess of buttock (principal); E11.22 Type 2 diabetes mellitus with diabetic chronic kidney disease; N18.9 Chronic kidney disease, unspecified; E11.65 Type 2 diabetes mellitus with hyperglycemia; Z55.6 Problems related to health literacy
CPT/HCPCS: 80053; 83605; 85025; 87070; 87077; 87205